=== PATIENT | female | born 1970 | race Caucasian/White ===

== ENCOUNTER → 2020-07-23 14:54 | Outpatient (BNVA) | payer MEDICAID, SELFPAY | PROVIDERS: PCP Registered Nurse; Visit Provider Registered Nurse | DX: E78.5 Hyperlipidemia, unspecified (principal); I10 Essential (primary) hypertension; E53.8 Deficiency of other specified B group vitamins; F10.10 Alcohol abuse, uncomplicated; F41.8 Other specified anxiety disorders; F17.210 Nicotine dependence, cigarettes, uncomplicated; R16.0 Hepatomegaly, not elsewhere classified; E66.09 Other obesity due to excess calories; Z68.31 Body mass index [BMI] 31.0-31.9, adult | CPT/HCPCS: 80053; 80061; 82607; 83721; 85025 ==

== ENCOUNTER 2020-10-21 03:34 | Emergency (ER) | payer MEDICAID, SELFPAY ==
[2020-10-21 03:36] VITALS: BP 133/115; PULSE 88; RESP 18; TEMP 36.4; O2SAT 97; BMI 29.0
--- NOTE | 2020-10-21 03:42 | ED_ITS ---
HPI - Headache General: Chief Complaint: Headache Stated Complaint: HIGH BLOOD PRESSURE Time Seen by Provider: 10/21/20 03:40 Source: patient and EMS Mode of arrival: EMS Limitations: no limitations History of Present Illness: HPI Narrative: 50-year-old female who states that she has a history of high blood pressure supposed to be on lisinopril. She states that she has not been able to get to the store in the last 2 weeks and has not had any of her blood pressure meds in over 2 weeks. She has had increasing hypertension along with dental pain. She states she has left lower molar pain. States that the pain started to radiate her head and now has a headache she rates a 6 out of 10. Denies this being the worst headache of her life. Denies any fevers. Denies any vomiting or diarrhea. Associated symptoms: Deny chest pain, fever(s), nausea, rash or vomiting Review of Systems Const: Denies: fever(s), chills, body aches or change in appetite Eyes: Denies: blurry vision or eye discomfort ENMT: Reports: mouth pain Card: Denies: chest pain Resp: Denies: dyspnea GI: Denies: abdominal pain, nausea, vomiting or diarrhea : Denies: dysuria Musc: Denies: neck pain or back pain Skin/Breast: Denies: rash Neuro: Reports: headache(s) Psych: Denies: depression Tej/Lymph: Denies: easy bruising All/Imm: Denies: urticaria PFSH ED PFSH: Medical History Alcohol abuse Allergic rhinitis Anxiety COPD (chronic obstructive pulmonary disease) with acute bronchitis Obesity Surgical History Hx of appendectomy Social History Smoking and tobacco status: current every day smoker cigarettes Packs smoked per day: 1 Quit status (tobacco): considering quitting Alcohol intake: current Alcohol intake frequency: other Alcohol type: beer and hard liquor Desire information about alcohol rehabilitation?: Yes Marital status: Legally Number of children: 4 Female Reproductive History: Date of last menstrual period: 07/22/20 Physical Exam Const: COMMON NORMALS: no acute distress, patient oriented x3 and healthy appearing HENMT: COMMON NORMALS: normocephalic and atraumatic HEAD & SCALP: normocephalic and atraumatic OTHER: Very poor dentition with tenderness over left lower molar with no obvious Eye: COMMON NORMALS: Equal, round and reactive pupils present and EOMs intact bilaterally PUPIL: Yes Equal, round and reactive pupils present Neck/C-Spine: COMMON NORMALS: full ROM and supple Chest: COMMONS NORMALS: normal inspection of the chest and normal palpation of entire chest wall Resp: COMMON NORMALS: normal respiratory effort, No retractions, No use of accessory muscles and clear to auscultation bilaterally AUSCULTATION: clear to auscultation bilaterally Cardio: COMMON NORMALS: regular rate, regular rhythm and No murmurs present (Cardio) RATE: regular rate RHYTHM: regular rhythm GI: COMMON NORMALS: Normal to inspection, nondistended, normoactive bowel sounds present, Soft to palpation, non-tender and no masses PALPATION: Yes Soft to palpation Extremity: COMMON NORMALS: normal to inspection and full ROM Neuro: COMMON NORMALS: patient oriented x3, moves all extremities and no focal motor deficits Psych: COMMON NORMALS: mental status grossly normal, Normal thought process present and cooperative THOUGHT PROCESS: Normal thought process present Skin: COMMON NORMALS: no rashes or lesions noted and no wounds GENERAL SKIN EXAM: no rashes or lesions noted Course Vital Signs: Vital signs: Vital Signs Temperature 97.6 F 10/21/20 03:36 Pulse Rate 88 10/21/20 03:36 Respiratory Rate 18 10/21/20 03:36 Blood Pressure 133/115 10/21/20 03:36 Pulse Oximetry 97 10/21/20 03:36 MDM - Headache MDM Narrative: Medical decision making narrative: Patient presents here with headache along with dental pain. She also has high blood pressure and has not filled her meds in weeks. She has no signs of meningitis or subarachnoid hemorrhage. Headache is not the worst headache of her life and likely is related to her dental pain. Will start on antibiotics for dental pain. Headache areas were improved after Reglan and Benadryl. Her blood pressure here has been stable. She is to follow-up with PCP and return if worsening. Discharge Plan Discharge Patient Disposition: Home Clinical Impression: Headache, Essential hypertension, Pain, dental Condition: Stable Prescriptions: New penicillin V potassium 500 mg tablet 500 mg PO Q6H 7 Days Qty: 28 RF: 0 No Action albuterol sulfate [ProAir HFA] 90 mcg/actuation HFA aerosol inhaler 2 inh inhalation Q4H PRN (Reason: shortness of breath or wheezing) Qty: 8.5 RF: 3 fluticasone propionate 50 mcg/actuation spray,suspension 1 spray intranasal BID Qty: 16 RF: 3 bupropion HCl 100 mg tablet See Rx Instructions .ROUTE .COMPLEX Qty: 60 RF: 0 lisinopril 10 mg tablet See Rx Instructions .ROUTE .COMPLEX Qty: 90 RF: 0 Discharge Orders: Discharge ED (Routine); Ordered 10/21/20 Ordered By: Mahendra De Leon Referrals: Storm Walton FNP [Primary Care Provider] - Discharge Diet: Advance as tolerated Discharge Activity: Resume usual activity Patient Instructions: Toothache (ED) Coding Level of Care Code ED Safety Trainer for Moncho Molina
[2020-10-21] MEDS: diphenhydrAMINE 50 mg/mL SDV 1mL IM (03:49)
[2020-10-21] MEDS: metoclopramide 5 mg/mL SDV 2 mL 10 MG IM (03:50)
[2020-10-21 03:54] VITALS: BP 154/111; PULSE 83; RESP 16; O2SAT 97
[2020-10-21] MEDS: acetaminophen 500 mg Tablet 1000 MG PO (03:59)
[2020-10-21 04:00] VITALS: BP 156/114; PULSE 83; RESP 16; TEMP 36.4; O2SAT 97
== END 2020-10-21 04:01 | disposition home or self-care (01) ==
LOC: ER 04:20
PROVIDERS: Emergency Provider Emergency Medicine; PCP Registered Nurse
DX: R51.9 Headache, unspecified (principal); I10 Essential (primary) hypertension; K08.89 Other specified disorders of teeth and supporting structures; J44.9 Chronic obstructive pulmonary disease, unspecified; E66.9 Obesity, unspecified; Z68.29 Body mass index [BMI] 29.0-29.9, adult; F17.210 Nicotine dependence, cigarettes, uncomplicated
CPT/HCPCS: 96372; 99283; J1200; J2765

== ENCOUNTER 2021-03-28 16:12 | Emergency (ER) | payer MEDICAID, SELFPAY ==
[2021-03-28 16:16] VITALS: BP 126/77; PULSE 112; RESP 16; TEMP 36.3; O2SAT 98
--- NOTE | 2021-03-28 16:41 | W.ED.GENADLT ---
Documented by User: Miguel Ángel Oates MD 03/28/21 17:29 HPI - General Adult General: Chief complaint: Psychiatric Symptoms Stated complaint: MHE Time Seen by Provider: 03/28/21 16:36 History of Present Illness: HPI: [50]yo patient w/ hx of depression BIBA for acute suicidal ideation with plan. Patient plans to kill herself by leaving her wood stove on while going to bed. Patient tells me her son was murdered recently and is feeling depressed from this. On arrival, the patient is AAOx3 and cooperative with my evaluation. No focal complaints of chest pain, shortness of breath, palpitations, N/V, focal GI/ complaints. Currently denies HI. No complaints of hallucinations. Onset: acute Duration: ongoing Location: home Severity: severe Associated symptoms: Deny chest pain, dyspnea, nausea, rash, palpitations or vomiting Review of Systems Const: Denies: fever(s) or chills Eyes: Denies: change in vision ENMT: Denies: mouth pain Card: Denies: chest pain or palpitations Resp: Denies: dyspnea or non-productive cough GI: Denies: abdominal pain, nausea, vomiting or diarrhea : Denies: dysuria Musc: Denies: extremity pain Skin/Breast: Denies: rash or new lesions Neuro: Denies: weakness in extremities Psych: Reports: depression and other (+suicidal ideation) Tej/Lymph: Denies: easy bruising PFS ED PFSH: Medical History Alcohol abuse Allergic rhinitis Anxiety COPD (chronic obstructive pulmonary disease) with acute bronchitis Obesity Surgical History Hx of appendectomy Social History Smoking and tobacco status: current every day smoker cigarettes Packs smoked per day: 1 Quit status (tobacco): considering quitting Alcohol intake: current Alcohol intake frequency: other Alcohol type: beer and hard liquor Desire information about alcohol rehabilitation?: Yes Marital status: Legally Number of children: 4 Female Reproductive History: Date of last menstrual period: 07/22/20 Physical Exam Const: COMMON NORMALS: alert HENMT: COMMON NORMALS: atraumatic HEAD & SCALP: atraumatic MOUTH: moist mucous membranes not abnormal Eye: COMMON NORMALS: EOMs intact bilaterally and conjunctivae normal CONJUNCTIVA: Yes conjunctivae normal Neck/C-Spine: COMMON NORMALS: full ROM and supple Resp: COMMON NORMALS: normal respiratory effort and clear to auscultation bilaterally AUSCULTATION: clear to auscultation bilaterally Cardio: COMMON NORMALS: regular rate RATE: regular rate GI: COMMON NORMALS: Soft to palpation and non-tender PALPATION: Yes Soft to palpation Extremity: COMMON NORMALS: full ROM Neuro: SENSORIUM/ORIENTATION: Yes alert MOTOR EXAM: No Abnormal motor strength present and Other motor observations present (no focal motor deficits) Psych: COMMON NORMALS: speech normal SPEECH: Yes normal speech MOOD & AFFECT: Yes euthymic mood Course Vital Signs: Vital signs: Vital Signs Temperature 98.1 F 03/28/21 22:00 Pulse Rate 79 03/28/21 22:00 Respiratory Rate 18 03/28/21 22:00 Blood Pressure 135/79 03/28/21 22:00 Pulse Oximetry 97 03/28/21 22:00 MDM - General Adult Medical Decision Making [50]yo patient w/ hx of depression presenting for SI with plan. HDS, exam within normal limit Thoughts are linear and organized, and the patient has no AH/VH, or HI. Clinically the patient displays no overt toxidrome; they are well appearing, with low suspicion for toxic ingestion given history and exam. Symptoms unlikely 2/2 anemia, hypothyroidism, infection, or ICH. Workup: CBC, CMP, Lipase, salicylate/tylenol, UDS Lab findings: wnl, +BENZO IN THE URINE [5:30pm] On reassessment, labs and workup wnl. Patient is hemodynamically stable with no acute medical complaints. Case discussed with psychiatric provider Dr. Chavez at [facility] psych inpatient with recommendation for admission. However, there is no beds in the hospital for psych patients. Patient will be transferred to outside facility. Disposition: Transfer to outside [facility] facility Lab Data : 03/28/21 16:59 03/28/21 16:59 Laboratory Results WBC 11.1 10^3/uL (4.0-10.0) H 03/28/21 16:59 RBC 4.89 10^6/uL (4.1-5.3) 03/28/21 16:59 Hgb 15.7 g/dL (11.5-15.3) H 03/28/21 16:59 Hct 49.1 % (37.0-47.0) H 03/28/21 16:59 MCV 100.4 fl (81-99) H 03/28/21 16:59 MCH 32.1 pg (28.0-34.0) 03/28/21 16:59 MCHC 32.0 g/dL (30.0-36.0) 03/28/21 16:59 RDW 12.9 % (12.1-15.1) 03/28/21 16:59 Plt Count 302 10^3/cmm (130-400) 03/28/21 16:59 MPV 9.5 fL (7.4-10.4) 03/28/21 16:59 Neut % (Auto) 58.2 % 03/28/21 16:59 Lymph % (Auto) 32.1 % 03/28/21 16:59 [place] % (Auto) 6.1 % 03/28/21 16:59 Eos % (Auto) 2.8 % 03/28/21 16:59 Baso % (Auto) 0.4 % 03/28/21 16:59 Neut # (Auto) 6.46 10^3/uL (1.8-7.7) 03/28/21 16:59 Lymph # (Auto) 3.6 10^3/uL (0.8-4.8) 03/28/21 16:59 [place] # (Auto) 0.7 10^3/uL (0.2-0.9) 03/28/21 16:59 Eos # (Auto) 0.3 10^3/uL (0.0-0.8) 03/28/21 16:59 Baso # (Auto) 0.0 10^3/uL (0.0-0.1) 03/28/21 16:59 Nucleated RBC % (auto) 0 % 03/28/21 16:59 Nucleated RBCs # 0.0 /100WBC 03/28/21 16:59 Sodium 137 mmol/L (136-145) 03/28/21 16:59 Potassium 4.4 mmol/L (3.5-5.1) 03/28/21 16:59 Chloride 101 mmol/L (98-107) 03/28/21 16:59 Carbon Dioxide 21 mmol/L (22-29) L 03/28/21 16:59 Anion Gap 19.4 (5-19) H 03/28/21 16:59 BUN 23 mg/dL (6-20) H 03/28/21 16:59 Creatinine 0.6 mg/dL (0.5-0.9) 03/28/21 16:59 GFR Calculation 106.3 mL/min (90-130) 03/28/21 16:59 Glucose 103 mg/dL (65-115) 03/28/21 16:59 Calculated Osmolality 288 mOsm/kg (285-295) 03/28/21 16:59 Calcium 8.3 mg/dL (8.5-10.5) L 03/28/21 16:59 Creatine Kinase 104 U/L (26-192) 03/28/21 16:59 TSH 1.18 uIU/mL (0.27-4.20) 03/28/21 16:59 Free T4 0.87 ng/dL (0.82-1.77) 03/28/21 16:59 HCG, Qual Negative (Negative) 03/28/21 16:59 Salicylates < 0.3 mg/dL (3-10) L 03/28/21 16:59 Urine Opiates Screen Negative ng/mL (Negative) 03/28/21 16:43 Acetaminophen < 5.0 ug/mL (10-30) L 03/28/21 16:59 Ur Barbiturates Screen Negative ng/mL (Negative) 03/28/21 16:43 Ur Phencyclidine Scrn Negative ng/mL (Negative) 03/28/21 16:43 Ur Amphetamines Screen Negative ng/mL (Negative) 03/28/21 16:43 U Benzodiazepines Scrn Positive ng/mL (Negative) H 03/28/21 16:43 Urine Cocaine Screen Negative ng/mL (Negative) 03/28/21 16:43 U Marijuana (THC) Screen Negative ng/mL (Negative) 03/28/21 16:43 Ethyl Alcohol 204 mg/dL (0-10) H 03/28/21 16:59 SARS-CoV-2 Ag (Rapid) Negative (Negative) 03/28/21 17:51 Discharge Plan Discharge Patient Disposition: Home Clinical Impression: Depression Condition: Stable Prescriptions: No Action albuterol sulfate [ProAir HFA] 90 mcg/actuation HFA aerosol inhaler 2 inh inhalation Q4H PRN (Reason: shortness of breath or wheezing) Qty: 8.5 3RF fluticasone propionate 50 mcg/actuation spray,suspension 1 spray intranasal BID Qty: 16 3RF Rx Instructions: administer into each nostril bupropion HCl 100 mg tablet See Rx Instructions .ROUTE .COMPLEX Qty: 60 0RF Dose Instruction: TAKE 1 TABLET BY MOUTH TWICE DAILY Rx Instructions: TAKE 1 TABLET BY MOUTH TWICE DAILY lisinopril 10 mg tablet See Rx Instructions .ROUTE .COMPLEX Qty: 90 0RF Dose Instruction: TAKE 1 TABLET BY MOUTH DAILY Rx Instructions: TAKE 1 TABLET BY MOUTH DAILY Discharge Orders: Discharge ED (Routine); Ordered 03/29/21 Ordered By: Stef Kirk Referrals: Storm Walton FNP [Primary Care Provider] - Discharge Diet: Advance as tolerated Discharge Activity: Increase activity as tolerated Patient Instructions: Depression (ED), Alcohol Intoxication (ED) Activity Restrictions/Additional Instructions: Return immediately to the emergency department for any wishes or thoughts to harm your self or others. Follow-up with behavioral health care. Coding Level of Care Code ED Sustainability Project Manager for Chg Fwd Exam Comprehensive Documented by User: Stef Kirk DO 03/29/21 00:18 HPI - General Adult General: Chief complaint: Psychiatric Symptoms Stated complaint: MHE Time Seen by Provider: 03/28/21 16:36 [facility] ED PFSH: Medical History Alcohol abuse Allergic rhinitis Anxiety COPD (chronic obstructive pulmonary disease) with acute bronchitis Obesity Surgical History Hx of appendectomy Social History Smoking and tobacco status: current every day smoker cigarettes Packs smoked per day: 1 Quit status (tobacco): considering quitting Alcohol intake: current Alcohol intake frequency: other Alcohol type: beer and hard liquor Desire information about alcohol rehabilitation?: Yes Marital status: Legally Number of children: 4 Course Vital Signs: Vital signs: Vital Signs Temperature 98.1 F 03/28/21 22:00 Pulse Rate 79 03/28/21 22:00 Respiratory Rate 18 03/28/21 22:00 Blood Pressure 135/79 03/28/21 22:00 Pulse Oximetry 97 03/28/21 22:00 MDM - General Adult Medical Decision Making [50]yo patient w/ hx of depression presenting for SI with plan. HDS, exam within normal limit Thoughts are linear and organized, and the patient has no AH/VH, or HI. Clinically the patient displays no overt toxidrome; they are well appearing, with low suspicion for toxic ingestion given history and exam. Symptoms unlikely 2/2 anemia, hypothyroidism, infection, or ICH. Workup: CBC, CMP, Lipase, salicylate/tylenol, UDS Lab findings: wnl, +BENZO IN THE URINE [5:30pm] On reassessment, labs and workup wnl. Patient is hemodynamically stable with no acute medical complaints. Case discussed with psychiatric provider Dr. Chavez at [facility] psych inpatient with recommendation for admission. However, there is no beds in the hospital for psych patients. Patient will be transferred to outside facility. Disposition: Transfer to outside [facility] facility [id number]: Received in checkout from previous physician. This lady was set up to be transferred to an outside facility for depression with suicidal ideation. She was intoxicated on arrival and alcohol level of 204. She is now sober. 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 She tells me that she is no longer suicidal, that she simply had an episode . She has been fully compliant and courteous here. I asked her if she would be willing to speak with our psychiatrist via telemedicine. She agrees. I spoke with Dr. Chavez, and he agrees to consult via telemedicine in her room to determine disposition. 0017: Psychiatry has had a chance to examine the patient. Psychiatry has released the patient to home for outpatient follow-up. She will be allowed discharge. Lab Data : 03/28/21 16:59 03/28/21 16:59 Laboratory Results WBC 11.1 10^3/uL (4.0-10.0) H 03/28/21 16:59 RBC 4.89 10^6/uL (4.1-5.3) 03/28/21 16:59 Hgb 15.7 g/dL (11.5-15.3) H 03/28/21 16:59 Hct 49.1 % (37.0-47.0) H 03/28/21 16:59 MCV 100.4 fl (81-99) H 03/28/21 16:59 MCH 32.1 pg (28.0-34.0) 03/28/21 16:59 MCHC 32.0 g/dL (30.0-36.0) 03/28/21 16:59 RDW 12.9 % (12.1-15.1) 03/28/21 16:59 Plt Count 302 10^3/cmm (130-400) 03/28/21 16:59 MPV 9.5 fL (7.4-10.4) 03/28/21 16:59 Neut % (Auto) 58.2 % 03/28/21 16:59 Lymph % (Auto) 32.1 % 03/28/21 16:59 [place] % (Auto) 6.1 % 03/28/21 16:59 Eos % (Auto) 2.8 % 03/28/21 16:59 Baso % (Auto) 0.4 % 03/28/21 16:59 Neut # (Auto) 6.46 10^3/uL (1.8-7.7) 03/28/21 16:59 Lymph # (Auto) 3.6 10^3/uL (0.8-4.8) 03/28/21 16:59 [place] # (Auto) 0.7 10^3/uL (0.2-0.9) 03/28/21 16:59 Eos # (Auto) 0.3 10^3/uL (0.0-0.8) 03/28/21 16:59 Baso # (Auto) 0.0 10^3/uL (0.0-0.1) 03/28/21 16:59 Nucleated RBC % (auto) 0 % 03/28/21 16:59 Nucleated RBCs # 0.0 /100WBC 03/28/21 16:59 Sodium 137 mmol/L (136-145) 03/28/21 16:59 Potassium 4.4 mmol/L (3.5-5.1) 03/28/21 16:59 Chloride 101 mmol/L (98-107) 03/28/21 16:59 Carbon Dioxide 21 mmol/L (22-29) L 03/28/21 16:59 Anion Gap 19.4 (5-19) H 03/28/21 16:59 BUN 23 mg/dL (6-20) H 03/28/21 16:59 Creatinine 0.6 mg/dL (0.5-0.9) 03/28/21 16:59 GFR Calculation 106.3 mL/min (90-130) 03/28/21 16:59 Glucose 103 mg/dL (65-115) 03/28/21 16:59 Calculated Osmolality 288 mOsm/kg (285-295) 03/28/21 16:59 Calcium 8.3 mg/dL (8.5-10.5) L 03/28/21 16:59 Creatine Kinase 104 U/L (26-192) 03/28/21 16:59 TSH 1.18 uIU/mL (0.27-4.20) 03/28/21 16:59 Free T4 0.87 ng/dL (0.82-1.77) 03/28/21 16:59 HCG, Qual Negative (Negative) 03/28/21 16:59 Salicylates < 0.3 mg/dL (3-10) L 03/28/21 16:59 Urine Opiates Screen Negative ng/mL (Negative) 03/28/21 16:43 Acetaminophen < 5.0 ug/mL (10-30) L 03/28/21 16:59 Ur Barbiturates Screen Negative ng/mL (Negative) 03/28/21 16:43 Ur Phencyclidine Scrn Negative ng/mL (Negative) 03/28/21 16:43 Ur Amphetamines Screen Negative ng/mL (Negative) 03/28/21 16:43 U Benzodiazepines Scrn Positive ng/mL (Negative) H 03/28/21 16:43 Urine Cocaine Screen Negative ng/mL (Negative) 03/28/21 16:43 U Marijuana (THC) Screen Negative ng/mL (Negative) 03/28/21 16:43 Ethyl Alcohol 204 mg/dL (0-10) H 03/28/21 16:59 SARS-CoV-2 Ag (Rapid) Negative (Negative) 03/28/21 17:51 Discharge Plan Discharge Patient Disposition: Home Clinical Impression: Depression Condition: Stable Prescriptions: No Action albuterol sulfate [ProAir HFA] 90 mcg/actuation HFA aerosol inhaler 2 inh inhalation Q4H PRN (Reason: shortness of breath or wheezing) Qty: 8.5 3RF fluticasone propionate 50 mcg/actuation spray,suspension 1 spray intranasal BID Qty: 16 3RF Rx Instructions: administer into each nostril bupropion HCl 100 mg tablet See Rx Instructions .ROUTE .COMPLEX Qty: 60 0RF Dose Instruction: TAKE 1 TABLET BY MOUTH TWICE DAILY Rx Instructions: TAKE 1 TABLET BY MOUTH TWICE DAILY lisinopril 10 mg tablet See Rx Instructions .ROUTE .COMPLEX Qty: 90 0RF Dose Instruction: TAKE 1 TABLET BY MOUTH DAILY Rx Instructions: TAKE 1 TABLET BY MOUTH DAILY Discharge Orders: Discharge ED (Routine); Ordered 03/29/21 Ordered By: Stef Kirk Referrals: Storm Walton FNP [Primary Care Provider] - Discharge Diet: Advance as tolerated Discharge Activity: Increase activity as tolerated Patient Instructions: Depression (ED), Alcohol Intoxication (ED) Activity Restrictions/Additional Instructions: Return immediately to the emergency department for any wishes or thoughts to harm your self or others. Follow-up with behavioral health care. Coding Level of Care Code ED Sustainability Project Manager for Moncho Fwphyllis Exam Comprehensive
[2021-03-28 17:01] LABS: Amphetamines Screen Urine Negative (Negative); Barbiturates Screen Urine Negative (Negative); Benzodiazepines Screen Urine Positive (Negative); Cocaine Screen Urine Negative (Negative); Opiate Screen Urine Negative (Negative); PCP Screen Urine Negative (Negative); THC Screen Urine Negative (Negative)
[2021-03-28 17:04] LABS: Basophils % 0.4 %; Eosinophils # 0.3 10^3/uL (0.0-0.8); Eosinophils % 2.8 %; Hematocrit 49.1 % (37.0-47.0); Hemoglobin 15.7 g/dL (11.5-15.3); Lymphocytes # 3.6 10^3/uL (0.8-4.8); Lymphocytes % 32.1 %; Mean Corpuscular Hemoglobin 32.1 pg (28.0-34.0); Mean Corpuscular Volume 100.4 fl (81-99); Mean Platelet Volume 9.5 fL (7.4-10.4); Monocytes # 0.7 10^3/uL (0.2-0.9); Monocytes % 6.1 %; Neutrophils # 6.46 10^3/uL (1.8-7.7); Neutrophils % 58.2 %; Nucleated Red Blood Cells % 0 %; Platelet Count 302 10^3/cmm (130-400); Red Blood Count 4.89 10^6/uL (4.1-5.3); Red Cell Distribution Width 12.9 % (12.1-15.1); White Blood Count 11.1 10^3/uL (4.0-10.0)
--- NOTE | 2021-03-28 17:08 | ECG_ITS ---
[facility] Test Date: 2021-03-28 Pat Name: Xiomara Chavez Department: Room: Gender: Female Cow Buyer: : 1970 Requested By: Miguel Ángel Oates Order Number: [id number] Brigitte MD: KUMAR REYES Measurements Intervals [place] Rate: 89 P: 75 MI: 186 QRS: 60 QRSD: 82 T: 51 QT: 352 QTc: 428 Interpretive Statements SINUS RHYTHM POSSIBLE LEFT ATRIAL ENLARGEMENT [-0.1mV P-WAVE IN V1/V2] LOW QRS VOLTAGE IN PRECORDIAL LEADS [QRS DEFLECTION < 1.0 mV IN CHEST LEADS] Compared to ECG 04/12/2017 10:43:46 Low QRS voltage now present Electronically Signed On 03-29-2021 19:17:18 COLOR DEVELOPER by KUMAR REYES [email or web address]
[2021-03-28 17:25] LABS: Blood Urea Nitrogen 23 mg/dL (6-20); Calcium 8.3 mg/dL (8.5-10.5); Carbon Dioxide 21 mmol/L (22-29); Chloride 101 mmol/L (98-107); Glomerular Filtration Rate 106.3 mL/min (90-130); Glucose 103 mg/dL (65-115); Osmolality Calculated 288 mOsm/kg (285-295); Sodium 137 mmol/L (136-145)
[2021-03-28 17:28] LABS: Acetaminophen < 5.0 ug/mL (10-30); Salicylate < 0.3 mg/dL (3-10)
[2021-03-28 17:29] LABS: Anion Gap 19.4 (5-19); Potassium 4.4 mmol/L (3.5-5.1)
[2021-03-28 18:00] LABS: Free T4 Free Thyroxine 0.87 ng/dL (0.82-1.77); Thyroid Stimulating Hormone 1.18 uIU/mL (0.27-4.20)
[2021-03-28 18:25] LABS: SARS Covid-2 Antigen Negative (Negative)
[2021-03-28 19:07] VITALS: BP 145/79; PULSE 89; RESP 20; TEMP 36.7; O2SAT 97
--- NOTE | 2021-03-28 19:20 | PC.NURSE ---
bedside reports in place. continual observation in place. resting on stretcher with respirations even equal and unlabored.
[2021-03-28] MEDS: nicotine 21 mg Patch 1 PATCH TRANSDERMA (19:28)
[2021-03-28 20:00] VITALS: BP 157/80; PULSE 79; RESP 18; TEMP 36.9; O2SAT 98
[2021-03-28 22:00] VITALS: BP 135/79; PULSE 79; RESP 18; TEMP 36.7; O2SAT 97
[2021-03-28 22:32] LABS: Alcohol Level 204 mg/dL (0-10)
[2021-03-28 22:55] LABS: HCG, Serum Qual Negative (Negative)
[2021-03-28 23:01] LABS: Creatine Phosphokinase 104 U/L (26-192)
[2021-03-28] MEDS: acetaminophen 500 mg Tablet 1000 MG PO (23:03)
[2021-03-28] MEDS: LORazepam 0.5 mg Tablet PO (23:03)
== END 2021-03-29 00:38 | disposition home or self-care (01) ==
PROVIDERS: Emergency Medicine; Emergency Provider Emergency Medicine; PCP Registered Nurse
DX: F32.A Depression, unspecified (principal); J44.9 Chronic obstructive pulmonary disease, unspecified; F17.210 Nicotine dependence, cigarettes, uncomplicated; Z20.822 Contact with and (suspected) exposure to COVID-19
CPT/HCPCS: 36415; 80048; 80306; 80307; 82550; 84439; 84443; 84703; 85025; 87426; 93005; 99284

== ENCOUNTER → 2021-05-22 13:27 | Outpatient (BNVA) | payer MEDICAID, SELFPAY | PROVIDERS: PCP Registered Nurse; Visit Provider Nurse Practitioner Psychiatric/Mental Health | DX: F33.2 Major depressive disorder, recurrent severe without psychotic features (principal); F43.10 Post-traumatic stress disorder, unspecified; F17.210 Nicotine dependence, cigarettes, uncomplicated | CPT/HCPCS: 90792 ==

== ENCOUNTER 2021-06-01 11:23 | Inpatient (IN) | payer MEDICAID, SELFPAY ==
[2021-06-01 11:26] VITALS: BP 127/85; PULSE 95; RESP 18; TEMP 36.6; O2SAT 96; BMI 30.7
--- NOTE | 2021-06-01 11:28 | ECG_ITS ---
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 Measurements Intervals [place] Rate: 90 P: 78 SD: 190 QRS: 81 QRSD: 80 T: 58 QT: 361 QTc: 444 Interpretive Statements SINUS RHYTHM POSSIBLE LEFT ATRIAL ENLARGEMENT [-0.1mV P-WAVE IN V1/V2] SEPTAL MYOCARDIAL INFARCTION , OF INDETERMINATE AGE [40+ ms Q WAVE IN V1/V2] Compared to ECG 03/28/2021 18:17:57 Myocardial infarct finding now present Electronically Signed On 06-02-2021 9:17:04 CDT by Jake Fagan M.D. [id number]
--- NOTE | 2021-06-01 11:29 | W.ED.GENADLT ---
HPI - General Adult General: Chief complaint: Psychiatric Symptoms Stated complaint: ANXIETY/ SI/ TOOK GABAPENTIN Time Seen by Provider: 06/01/21 11:27 History of Present Illness: HPI: [50]yo patient w/ hx of chornic depression, COPD, and alcohol abuse BIBA for acute anxiety and attempt for suicide after ingesting 10-15 tablets of 300mg of gabapentin at 8:30am. On arrival, the patient is AAOx3 and cooperative with my evaluation. No focal complaints of chest pain, shortness of breath, palpitations, N/V, focal GI/ complaints. []Currently denies SI/HI. No complaints of hallucinations. Last alcohol use was 3 days ago. Onset: acute Duration: ongoing Location: home Severity: severe Associated symptoms: Deny chest pain, dyspnea, nausea, rash, palpitations or vomiting Review of Systems Const: Denies: fever(s) or chills Eyes: Denies: change in vision ENMT: Denies: mouth pain Card: Denies: chest pain or palpitations Resp: Denies: dyspnea or non-productive cough GI: Denies: abdominal pain, nausea, vomiting or diarrhea : Denies: dysuria Musc: Denies: extremity pain Skin/Breast: Denies: rash or new lesions Neuro: Denies: weakness in extremities Psych: Reports: depression and suicidal ideation Tej/Lymph: Denies: easy bruising PFS ED PFSH: Medical History Alcohol abuse Allergic rhinitis Anxiety Bereavement COPD (chronic obstructive pulmonary disease) with acute bronchitis Major depressive disorder, 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, episodic Nicotine dependence, cigarettes, uncomplicated Obesity Psychiatric care PTSD (post-traumatic stress disorder) Severe alcohol dependence Surgical History Hx of appendectomy Social History Smoking and tobacco status: current every day smoker cigarettes Packs smoked per day: 1 Quit status (tobacco): considering quitting Alcohol intake: current Alcohol intake frequency: other Alcohol type: beer and hard liquor Desire information about alcohol rehabilitation?: Yes Marital status: Legally Number of children: 4 Female Reproductive History: Date of last menstrual period: 07/22/20 Physical Exam Const: COMMON NORMALS: alert HENMT: COMMON NORMALS: atraumatic HEAD & SCALP: atraumatic MOUTH: moist mucous membranes not abnormal Eye: COMMON NORMALS: EOMs intact bilaterally and conjunctivae normal CONJUNCTIVA: Yes conjunctivae normal Neck/C-Spine: COMMON NORMALS: full ROM and supple Resp: COMMON NORMALS: normal respiratory effort and clear to auscultation bilaterally AUSCULTATION: clear to auscultation bilaterally Cardio: COMMON NORMALS: regular rate RATE: regular rate GI: COMMON NORMALS: Soft to palpation and non-tender PALPATION: Yes Soft to palpation Extremity: COMMON NORMALS: full ROM Neuro: SENSORIUM/ORIENTATION: Yes alert MOTOR EXAM: No Abnormal motor strength present and Other motor observations present (no focal motor deficits) Psych: COMMON NORMALS: speech normal SPEECH: Yes normal speech MOOD & AFFECT: Yes depressed mood Course Vital Signs: Vital signs: Vital Signs Temperature 97.9 F 06/01/21 11:26 Pulse Rate 95 06/01/21 11:26 Respiratory Rate 18 06/01/21 11:26 Blood Pressure 127/85 06/01/21 11:26 Pulse Oximetry 96 06/01/21 11:26 MDM - General Adult Medical Decision Making [50]yo patient w/ hx of depression, COPD presenting for anxiety, acute suicidal attempt with 10-15 tablets of gabapentin 300mg. HDS, exam within normal limit Thoughts are linear and organized, and the patient has no AH/VH, or HI. Clinically the patient displays no overt toxidrome; they are well appearing, with low suspicion for toxic ingestion given history and exam. Symptoms unlikely 2/2 anemia, hypothyroidism, infection, or ICH. Workup: CBC, CMP, Lipase, salicylate/tylenol, serum ethanol, UDS Lab findings: wnl, +amphetamine Case was discussed with [place] poison control chemist who informs me that patient is currently subtoxic since total ingestion < 10g and patient is past peak of 2hr. [1:00pm] On reassessment, labs and workup wnl. Patient is hemodynamically stable with no acute medical complaints. Case discussed with psychiatric provider Dr. Chavez at [facility] psych inpatient with recommendation for admission Disposition: Psych Lab Data : 06/01/21 11:47 06/01/21 11:47 Laboratory Results WBC 5.7 10^3/uL (4.0-10.0) 06/01/21 11:47 RBC 4.11 10^6/uL (4.1-5.3) 06/01/21 11:47 Hgb 13.1 g/dL (11.5-15.3) 06/01/21 11:47 Hct 39.3 % (37.0-47.0) 06/01/21 11:47 MCV 95.6 fl (81-99) 06/01/21 11:47 MCH 31.9 pg (28.0-34.0) 06/01/21 11:47 MCHC 33.3 g/dL (30.0-36.0) 06/01/21 11:47 RDW 12.9 % (12.1-15.1) 06/01/21 11:47 Plt Count 262 10^3/cmm (130-400) 06/01/21 11:47 MPV 9.0 fL (7.4-10.4) 06/01/21 11:47 Neut % (Auto) 65.8 % 06/01/21 11:47 Lymph % (Auto) 22.4 % 06/01/21 11:47 [place] % (Auto) 9.1 % 06/01/21 11:47 Eos % (Auto) 2.1 % 06/01/21 11:47 Baso % (Auto) 0.3 % 06/01/21 11:47 Neut # (Auto) 3.76 10^3/uL (1.8-7.7) 06/01/21 11:47 Lymph # (Auto) 1.3 10^3/uL (0.8-4.8) 06/01/21 11:47 [place] # (Auto) 0.5 10^3/uL (0.2-0.9) 06/01/21 11:47 Eos # (Auto) 0.1 10^3/uL (0.0-0.8) 06/01/21 11:47 Baso # (Auto) 0.0 10^3/uL (0.0-0.1) 06/01/21 11:47 Nucleated RBC % (auto) 0 % 06/01/21 11:47 Nucleated RBCs # 0.0 /100WBC 06/01/21 11:47 Sodium 132 mmol/L (136-145) L 06/01/21 11:47 Potassium 3.7 mmol/L (3.5-5.1) 06/01/21 11:47 Chloride 97 mmol/L (98-107) L 06/01/21 11:47 Carbon Dioxide 25 mmol/L (22-29) 06/01/21 11:47 Anion Gap 13.7 (5-19) 06/01/21 11:47 BUN 22 mg/dL (6-20) H 06/01/21 11:47 Creatinine 0.7 mg/dL (0.5-0.9) 06/01/21 11:47 GFR Calculation 88.9 mL/min (90-130) L 06/01/21 11:47 Glucose 121 mg/dL (65-115) H 06/01/21 11:47 Calculated Osmolality 279 mOsm/kg (285-295) L 06/01/21 11:47 Calcium 8.8 mg/dL (8.5-10.5) 06/01/21 11:47 Total Bilirubin 0.6 mg/dL (0.15-1.2) 06/01/21 11:47 AST 23 U/L (0-32) 06/01/21 11:47 ALT 18 U/L (0-33) 06/01/21 11:47 Alkaline Phosphatase 80 IU/L (35-105) 06/01/21 11:47 Total Protein 7.0 g/dL (6.6-8.7) 06/01/21 11:47 Albumin 4.0 g/dL (3.5-5.2) 06/01/21 11:47 Globulin 3.0 g/dL (1.3-4.6) 06/01/21 11:47 Lipase 21 U/L (13-60) 06/01/21 11:47 Salicylates < 0.3 mg/dL (3-10) L 06/01/21 11:47 Urine Opiates Screen Negative ng/mL (Negative) 06/01/21 11:47 Acetaminophen < 5.0 ug/mL (10-30) L 06/01/21 11:47 Ur Barbiturates Screen Negative ng/mL (Negative) 06/01/21 11:47 Ur Phencyclidine Scrn Negative ng/mL (Negative) 06/01/21 11:47 Ur Amphetamines Screen Positive ng/mL (Negative) H 06/01/21 11:47 U Benzodiazepines Scrn Negative ng/mL (Negative) 06/01/21 11:47 Urine Cocaine Screen Negative ng/mL (Negative) 06/01/21 11:47 U Marijuana (THC) Screen Negative ng/mL (Negative) 06/01/21 11:47 Ethyl Alcohol < 10 mg/dL (0-10) 06/01/21 11:47 Discharge Plan Discharge Patient Disposition: Admitted As Inpatient Admit Provider: Deric Chavez Clinical Impression: Depression with suicidal ideation, Anxiety, Stress Condition: Stable Coding Level of Care Code ED Photoengraving Retoucher for Moncho Fwd Exam Comprehensive
[2021-06-01] MEDS: LORazepam 1 mg Tablet PO (11:51)
[2021-06-01 12:18] LABS: Basophils % 0.3 %; Eosinophils # 0.1 10^3/uL (0.0-0.8); Eosinophils % 2.1 %; Hematocrit 39.3 % (37.0-47.0); Hemoglobin 13.1 g/dL (11.5-15.3); Lymphocytes # 1.3 10^3/uL (0.8-4.8); Lymphocytes % 22.4 %; Mean Corpuscular HGB Conc 33.3 g/dL (30.0-36.0); Mean Corpuscular Hemoglobin 31.9 pg (28.0-34.0); Mean Corpuscular Volume 95.6 fl (81-99); Monocytes # 0.5 10^3/uL (0.2-0.9); Monocytes % 9.1 %; Neutrophils # 3.76 10^3/uL (1.8-7.7); Neutrophils % 65.8 %; Nucleated Red Blood Cells % 0 %; Platelet Count 262 10^3/cmm (130-400); Red Blood Count 4.11 10^6/uL (4.1-5.3); Red Cell Distribution Width 12.9 % (12.1-15.1); White Blood Count 5.7 10^3/uL (4.0-10.0)
[2021-06-01 12:44] LABS: Alanine Aminotransferase 18 U/L (0-33); Alkaline Phosphatase 80 IU/L (35-105); Anion Gap 13.7 (5-19); Aspartate Amino Transferase 23 U/L (0-32); Blood Urea Nitrogen 22 mg/dL (6-20); Calcium 8.8 mg/dL (8.5-10.5); Carbon Dioxide 25 mmol/L (22-29); Chloride 97 mmol/L (98-107); Creatinine Clr Calc Pharmacy 107.5122; Glomerular Filtration Rate 88.9 mL/min (90-130); Glucose 121 mg/dL (65-115); Lipase 21 U/L (13-60); Osmolality Calculated 279 mOsm/kg (285-295); Potassium 3.7 mmol/L (3.5-5.1); Sodium 132 mmol/L (136-145); Total Bilirubin 0.6 mg/dL (0.15-1.2)
[2021-06-01 12:51] LABS: Acetaminophen < 5.0 ug/mL (10-30); Alcohol Level < 10 mg/dL (0-10); Salicylate < 0.3 mg/dL (3-10)
[2021-06-01 12:59] LABS: Amphetamines Screen Urine Positive (Negative); Barbiturates Screen Urine Negative (Negative); Benzodiazepines Screen Urine Negative (Negative); Cocaine Screen Urine Negative (Negative); Opiate Screen Urine Negative (Negative); PCP Screen Urine Negative (Negative); THC Screen Urine Negative (Negative)
[2021-06-01 13:18] VITALS: BP 144/90; PULSE 78; RESP 18; O2SAT 97
[2021-06-01 13:46] LABS: HCG, Serum Qual Negative (Negative)
[2021-06-01] MEDS: propranolol 20 mg Tablet PO (14:09)
[2021-06-01 14:33] VITALS: BP 106/105; PULSE 79; RESP 18; TEMP 36.4; O2SAT 98
[2021-06-01] MEDS: nicotine 2 mg Gum BUCCAL ×2 (14:45→19:45)
[2021-06-01] MEDS: fluticasone nasal spray 16gm Btl 1 SPRAY INTRANASAL (17:33)
[2021-06-01] MEDS: acetaminophen 325 mg Tablet 650 MG PO (17:55)
[2021-06-01] MEDS: trazodone 50 mg Tablet PO (19:45)
[2021-06-01 20:42] VITALS: BP 122/76; PULSE 84; RESP 17; TEMP 36.7; O2SAT 97
[2021-06-02 06:00] VITALS: BP 107/72; PULSE 84; RESP 20; TEMP 36.5; O2SAT 97
[2021-06-02] MEDS: sertraline 50 mg Tablet PO (06:33)
[2021-06-02] MEDS: nicotine 2 mg Gum BUCCAL (07:28)
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
[2021-06-02] MEDS: nicotine 21 mg Patch 1 PATCH TRANSDERMA (09:44)
[2021-06-02] MEDS: fluticasone nasal spray 16gm Btl 1 SPRAY INTRANASAL ×2 (09:44→17:44)
[2021-06-02] MEDS: lisinopril 10 mg Tablet PO (09:45)
[2021-06-02] MEDS: folic acid 1 mg Tablet PO (09:45)
--- NOTE | 2021-06-02 12:52 | PC.SOCIAL ---
Patient did not attend group.
[2021-06-02] MEDS: polyethylene glycol 3350 Pkt 17 gm PO (13:57)
[2021-06-02 14:00] VITALS: BP 114/78; PULSE 80; RESP 18; TEMP 37.2; O2SAT 96
[2021-06-02] MEDS: acetaminophen 325 mg Tablet 650 MG PO (17:42)
[2021-06-02] MEDS: hyDROXYzine 25 mg Capsule 50 MG PO (18:28)
[2021-06-02 20:25] VITALS: BP 123/83; PULSE 74; RESP 18; TEMP 36.9; O2SAT 97
[2021-06-02] MEDS: trazodone 50 mg Tablet PO (22:19)
[2021-06-03 06:00] VITALS: BP 123/87; PULSE 84; RESP 19; TEMP 36.7; O2SAT 100
[2021-06-03] MEDS: sertraline 50 mg Tablet PO (06:16)
[2021-06-03] MEDS: fluticasone nasal spray 16gm Btl 1 SPRAY INTRANASAL ×2 (09:04→17:36)
[2021-06-03] MEDS: lisinopril 10 mg Tablet PO (09:04)
[2021-06-03] MEDS: folic acid 1 mg Tablet PO (09:04)
[2021-06-03] MEDS: phenyleph-mineral oil-petrolat Oint 28 gm 1 APPLIC TOPICAL (09:53)
[2021-06-03] MEDS: nicotine 21 mg Patch 1 PATCH TRANSDERMA (09:53)
[2021-06-03] MEDS: hyDROXYzine 25 mg Capsule 50 MG PO ×2 (10:00→15:49)
[2021-06-03 11:09] VITALS: PULSE 74; RESP 18; O2SAT 96
[2021-06-03] MEDS: albuterol 8 gm MDI 1 PUFF INHALATION (11:09)
--- NOTE | 2021-06-03 13:41 | PC.SOCIAL ---
Patient did not attend group.
[2021-06-03 13:55] VITALS: BP 135/90; PULSE 76; RESP 16; TEMP 36.7; O2SAT 97
--- NOTE | 2021-06-03 14:04 | W.PM.NPUPNS ---
Subjective NPU Subjective: Patient presents today reporting that she is doing better. She continues to adjust the story exactly what happened in a way that makes it so most of it seems like it is untrustworthy information. However that being said she is now on a 96-hour hold as she has been adherent to the medication is appropriate in all interviews. She expresses concern about her pets and reports that she needs to be able to go to the bank and pay for her phone so she can be less anxious about her situation of house arrest. She denied any lethality and reports that she plans to follow-up and avoid inappropriate behavior with Neurontin. Mental Status Exam MSE Comments: This is an overweight versus obese white female in hospital scrubs with adequate grooming and eye contact. No abnormal movements except for mild psychomotor retardation. Cooperative with exam in mild distress. Speech was normal rate and volume. Mood described as pretty good, affect congruent. Thought process organized. Thought contact: patient denies suicidal or homicidal ideation, there were no delusions reported or noted, patient denied auditory or visual hallucinations. Attention and concentration appeared intact and memory appeared reliable but none were formally tested. Patient is alert and oriented times three. Insight and judgment appear fair and impulse control appears limited. Vitals/I&O/Wt Last Vital Signs Temp 98.0 F 06/03/21 13:55 Pulse 76 06/03/21 13:55 Resp 16 06/03/21 13:55 BP 135/90 06/03/21 13:55 Pulse Ox 97 06/03/21 13:55 Data NPU : 06/01/21 11:47 06/01/21 11:47 A&P Assessment and plan (1) Depression with suicidal ideation: Status: Acute (2) Anxiety: Status: Acute (3) Stress: Status: Acute (4) Major depressive disorder, recurrent severe without psychotic features: Status: Chronic (5) Bereavement: Status: Acute (6) Nicotine dependence, cigarettes, uncomplicated: Status: Chronic (7) Methamphetamine dependence, episodic: Status: Chronic (8) PTSD (post-traumatic stress disorder): Status: Chronic (9) Severe alcohol dependence: Status: Chronic Plan This is a 50-year-old white female with a long history of depression, anxiety and addiction who presents after an intentional overdose that she denies being in a suicide attempt desiring discharge as soon as possible. 1.? Continue current medication.? Except, hold the Neurontin. 2.? Continue every 15 minute checks for safety. 3.? Encourage individual, group and milieu therapies. 4.? Encourage sober living treatment after discharge at the highest level of care to which she is willing to commit. 5. Likely discharge in the morning. Involuntary Hold Information 96 Hour Hold: 96 Hour Involuntary Admission: No Attestations NPU Medical Necessity Statement*: Inpatient hospitalization is medically necessary and the clinically appropriate intervention at this time. We will monitor medication to make changes as indicated. Likely length of stay 1-3 days. Coding Level of Care Code Acute Liability Claims Adjuster for g Fwd Diagnoses Depression with suicidal ideation F32.A; R45.851 Anxiety F41.9 Stress F43.9 Major depressive disorder, recurrent severe without psychotic features F33.2 Bereavement Z63.4 Nicotine dependence, cigarettes, uncomplicated F17.210 Methamphetamine dependence, episodic F15.20 PTSD (post-traumatic stress disorder) F43.10 Severe alcohol dependence F10.20
[2021-06-03 20:54] VITALS: BP 129/87; PULSE 88; RESP 18; TEMP 36.6; O2SAT 96
[2021-06-03] MEDS: acetaminophen 325 mg Tablet 650 MG PO (20:58)
[2021-06-03] MEDS: trazodone 50 mg Tablet PO (20:58)
--- NOTE | 2021-06-03 21:58 | PC.NURSE ---
2054 requested trazodone for sleep and tylenol for pain. 2154- They were effective.
[2021-06-04 06:00] VITALS: BP 134/93; PULSE 73; RESP 17; TEMP 36.6; O2SAT 96
[2021-06-04] MEDS: sertraline 50 mg Tablet PO (06:51)
[2021-06-04] MEDS: folic acid 1 mg Tablet PO (08:39)
[2021-06-04] MEDS: hyDROXYzine 25 mg Capsule 50 MG PO (08:39)
[2021-06-04] MEDS: lisinopril 10 mg Tablet PO (08:39)
[2021-06-04] MEDS: fluticasone nasal spray 16gm Btl 1 SPRAY INTRANASAL (08:43)
[2021-06-04] MEDS: phenyleph-mineral oil-petrolat Oint 28 gm 1 APPLIC TOPICAL (08:43)
[2021-06-04 09:08] VITALS: PULSE 79; RESP 17; O2SAT 98
[2021-06-04] MEDS: nicotine 4 mg lozenge MUCOUS MEM (09:49)
[2021-06-04 11:20] VITALS: BP 134/93; PULSE 79; RESP 17; O2SAT 98
--- NOTE | 2021-06-04 12:22 | PC.NURSE ---
Discharge Discharged to home via taxi services. Signed property sheet stating she is leaving with everything she came with. All discharge teaching completed and overviewed all appointments. Verbalizes understanding. Discharged at 1220 wit all belongings and discharge teaching education.
--- NOTE | 2021-06-08 06:41 | W.PM.NPUDCS ---
Diagnoses at Discharge Discharge Diagnosis (1) Depression with suicidal ideation: Status: Acute (2) Anxiety: Status: Acute (3) Stress: Status: Acute (4) Major depressive disorder, recurrent severe without psychotic features: Status: Chronic (5) Bereavement: Status: Acute (6) Nicotine dependence, cigarettes, uncomplicated: Status: Chronic (7) Methamphetamine dependence, episodic: Status: Chronic (8) PTSD (post-traumatic stress disorder): Status: Chronic (9) Severe alcohol dependence: Status: Chronic Reason for Visit Reason for Visit: ANXIETY/ SI/ TOOK GABAPENTIN Brief History: History of Present Illness Xiomara Chavez is a 50 year old female who presented to the emergency department with the following report: Chief complaint: Psychiatric Symptoms Stated complaint: ANXIETY/ SI/ TOOK GABAPENTIN Time Seen by Provider: 06/01/21 11:27 History of Present Illness:?? HPI: [50]yo patient w/ hx of chornic depression, COPD, and alcohol abuse BIBA for acute anxiety and attempt for suicide after ingesting 10-15 tablets of 300mg of gabapentin at 8:30am. On arrival, the patient is AAOx3 and cooperative with my evaluation. No focal complaints of chest pain, shortness of breath, palpitations, N/V, focal GI/ complaints. []Currently denies SI/HI. No complaints of hallucinations. Last alcohol use was 3 days ago. Onset: acute Duration: ongoing Location: home Severity: severe Associated symptoms: Deny chest pain, dyspnea, nausea, rash, palpitations or vomiting is gone okay. She was admitted to the neuropsychiatric unit for definitive treatment of those issues.? She presents today backtracking on her story of suicidal behavior reporting instead that she was anxious and just having to take that number of pills over a short period of time.? We discussed the fact that even if it was not a suicide attempt that is overdosing on medication using that much medication in a short time because she was anxious. ? She spent most of the time reporting that she was in the person and suicidal and that she had things to live for and that she is on house arrest and was really anxious because her phone service was set up and she was out of touch with her p.o. and to get a message from the ankle bracelet that she needed to be in touch with her p.o.? We reviewed her psychiatric evaluation from just days prior and she reports that there have been no substantive changes and that it reflects a true evaluation of her circumstance.? An excerpt of that is included below for context.? She is currently not on a 96-hour hold. Hospital Course Hospital Course She slowly acclimated to the individual, group and milieu therapies provided. She was continued on her outpatient medications. She tolerated these doses and showed steady improvement during her stay. She was able to contract for safety outside hospital prior to discharge. During the hospitalization, patient had routine laboratory studies which were within normal limits except for few outliers. Additionally there was a general medical evaluation which was also within normal limits and revealed no new acute processes. Discharge Summary: At the time of discharge, lethality was denied and psychosis was resolving. Mood and anxiety were well managed. Patient endorsed a plan to follow-up with the aftercare recommendations of the treatment team. Patient was evaluated and deemed to be absent credible lethality, and had achieved the maximum benefit from an inpatient hospitalization, so was discharged. Involuntary Hold Information 96 Hour Hold: 96 Hour Involuntary Admission: No Mental Status Exam MSE Comments: This is an overweight versus obese white female in hospital scrubs with adequate grooming and eye contact. No abnormal movements except for mild psychomotor retardation. Cooperative with exam in mild distress. Speech was normal rate and volume. Mood described as pretty good, affect congruent. Thought process organized. Thought contact: patient denies suicidal or homicidal ideation, there were no delusions reported or noted, patient denied auditory or visual hallucinations. Attention and concentration appeared intact and memory appeared reliable but none were formally tested. Patient is alert and oriented times three. Insight and judgment appear fair and impulse control appears limited. Cognition: Patient Appearance: Disheveled/Poor Hygiene Level of Consciousness: Awake, Alert, Appropriate and Follows Commands Patient Cognition Impaired: No Ability to Follow Directions: Good Patient Orientation (long list): Person, Place, Time, Name, Month and Year Comprehension Ability: No Impairment Hallucination Type: None Delusion Description: Not Present Thought Process: Appropriate Affect: Affect Description: Anxious Depressive Symptoms: Difficulty Concentrating, Difficulty Sleeping, Feelings of Worthlessness, Hopelessness, Insomnia, Increased Anxiety, Loss of Energy, Low Self Esteem and Unhappiness Behavior: Patient Behavior: Cooperative Speech Pattern: Appropriate and Clear Discharge Data Studies Completed and Pending: Laboratory Results WBC 5.7 10^3/uL (4.0- 10.0) 06/01/21 11:47 RBC 4.11 10^6/uL (4.1 -5.3) 06/01/21 11:47 Hgb 13.1 g/dL (11.5-1 5.3) 06/01/21 11:47 Hct 39.3 % (37.0-47.0 ) 06/01/21 11:47 MCV 95.6 fl (81-99) 06/01/21 11:47 MCH 31.9 pg (28.0-34. 0) 06/01/21 11:47 MCHC 33.3 g/dL (30.0-3 6.0) 06/01/21 11:47 RDW 12.9 % (12.1-15.1 ) 06/01/21 11:47 Plt Count 262 10^3/cmm (130 -400) 06/01/21 11:47 MPV 9.0 fL (7.4-10.4) 06/01/21 11:47 Neut % (Auto) 65.8 % 06/01/21 11:47 Lymph % (Auto) 22.4 % 06/01/21 11:47 Sanders % (Auto) 9.1 % 06/01/21 11:47 Eos % (Auto) 2.1 % 06/01/21 11:47 Baso % (Auto) 0.3 % 06/01/21 11:47 Neut # (Auto) 3.76 10^3/uL (1.8 -7.7) 06/01/21 11:47 Lymph # (Auto) 1.3 10^3/uL (0.8- 4.8) 06/01/21 11:47 Sanders # (Auto) 0.5 10^3/uL (0.2- 0.9) 06/01/21 11:47 Eos # (Auto) 0.1 10^3/uL (0.0- 0.8) 06/01/21 11:47 Baso # (Auto) 0.0 10^3/uL (0.0- 0.1) 06/01/21 11:47 Nucleated RBC % (a uto) 0 % 06/01/21 11:47 Nucleated RBCs # 0.0 /100WBC 06/01/21 11:47 Sodium 132 mmol/L (136-1 45) L 06/01/21 11:47 Potassium 3.7 mmol/L (3.5-5 .1) 06/01/21 11:47 Chloride 97 mmol/L (98-107 ) L 06/01/21 11:47 Carbon Dioxide 25 mmol/L (22-29) 06/01/21 11:47 Anion Gap 13.7 (5-19) 06/01/21 11:47 BUN 22 mg/dL (6-20) H 06/01/21 11:47 Creatinine 0.7 mg/dL (0.5-0. 9) 06/01/21 11:47 GFR Calculation 88.9 mL/min (90-1 30) L 06/01/21 11:47 Glucose 121 mg/dL (65-115 ) H 06/01/21 11:47 Calculated Osmolal ity 279 mOsm/kg (285- 295) L 06/01/21 11:47 Calcium 8.8 mg/dL (8.5-10 .5) 06/01/21 11:47 Total Bilirubin 0.6 mg/dL (0.15-1 .2) 06/01/21 11:47 AST 23 U/L (0-32) 06/01/21 11:47 ALT 18 U/L (0-33) 06/01/21 11:47 Alkaline Phosphata se 80 IU/L (35-105) 06/01/21 11:47 Total Protein 7.0 g/dL (6.6-8.7 ) 06/01/21 11:47 Albumin 4.0 g/dL (3.5-5.2 ) 06/01/21 11:47 Globulin 3.0 g/dL (1.3-4.6 ) 06/01/21 11:47 Lipase 21 U/L (13-60) 06/01/21 11:47 HCG, Qual Negative (Negati ve) 06/01/21 13:16 Salicylates < 0.3 mg/dL (3-10 ) L 06/01/21 11:47 Urine Opiates Scre en Negative ng/mL (N egative) 06/01/21 11:47 Acetaminophen < 5.0 ug/mL (10-3 0) L 06/01/21 11:47 Ur Barbiturates Sc reen Negative ng/mL (N egative) 06/01/21 11:47 Ur Phencyclidine S crn Negative ng/mL (N egative) 06/01/21 11:47 Ur Amphetamines Sc reen Positive ng/mL (N egative) H 06/01/21 11:47 U Benzodiazepines Scrn Negative ng/mL (N egative) 06/01/21 11:47 Urine Cocaine Scre en Negative ng/mL (N egative) 06/01/21 11:47 U Marijuana (THC) Screen Negative ng/mL (N egative) 06/01/21 11:47 Ethyl Alcohol < 10 mg/dL (0-10) 06/01/21 11:47 Vitals: Last Vital Signs Temp 97.9 F 06/04/21 06:00 Pulse 79 06/04/21 11:20 Resp 17 06/04/21 11:20 BP 134/93 06/04/21 11:20 Pulse Ox 98 06/04/21 11:20 Discharge Plan Discharge Patient Disposition: Home Condition: Stable Prescriptions: Continued albuterol sulfate [ProAir HFA] 90 mcg/actuation HFA aerosol inhaler 2 inh inhalation Q4H PRN (Reason: shortness of breath or wheezing) Qty: 8.5 3RF sertraline [Zoloft] 50 mg tablet 50 mg PO QAM 0RF lisinopril 10 mg tablet 10 mg PO DAILY 0RF Dose Instruction: TAKE 1 TABLET BY MOUTH DAILY fluticasone propionate 50 mcg/actuation spray,suspension 1 spray intranasal BID 0RF Rx Instructions: administer into each nostril gabapentin 300 mg capsule 300 mg PO BID 0RF folic acid 1 mg tablet 1 mg PO DAILY 0RF Discharge Orders: Discharge Order (Routine); Ordered 06/04/21 Ordered By: Johnson Sarabia Referrals: [facility] [Other] Norma Gary PMHNP [Staff Physician] - 06/09/21 11:45 am Aye Farley PMHNP [Staff Physician] - 08/14/21 12:45 pm Storm Walton FNP [Primary Care Provider] - 06/08/21 11:00 am (Follow up) Discharge Diet: Usual diet Discharge Activity: Resume usual activity Patient Instructions: Depression (ED), Anxiety (ED), Opioid Safety Discharge Attestations NPU Time Spent in Discharge Care*: less than 30 min Specific Discharge Activities: Specific discharge activities: educating patient, discussing with leather case finisher/social workers/dc planners, documenting/other paperwork and evaluating patient/reviewing data Coding Level of Care Code Acute Chg FW DC note Diagnoses Depression with suicidal ideation F32.A; R45.851 Anxiety F41.9 Stress F43.9 Major depressive disorder, recurrent severe without psychotic features F33.2 Bereavement Z63.4 Nicotine dependence, cigarettes, uncomplicated F17.210 Methamphetamine dependence, episodic F15.20 PTSD (post-traumatic stress disorder) F43.10 Severe alcohol dependence F10.20
== END 2021-06-04 12:20 | disposition home or self-care (01) | DRG 880 ==
LOC: ER 11:55 → NP 13:08
PROVIDERS: Admitting Provider Psychiatry & Neurology Psychiatry; Emergency Provider Emergency Medicine; PCP Registered Nurse; Visit Provider Psychiatry & Neurology Psychiatry
DX: F41.9 Anxiety disorder, unspecified (principal); R45.851 Suicidal ideations; F33.2 Major depressive disorder, recurrent severe without psychotic features; F15.20 Other stimulant dependence, uncomplicated; T42.6X2A Poisoning by other antiepileptic and sedative-hypnotic drugs, intentional self-harm, initial encounter; F43.9 Reaction to severe stress, unspecified; Z63.4 Disappearance and death of family member; F17.210 Nicotine dependence, cigarettes, uncomplicated; F43.10 Post-traumatic stress disorder, unspecified; F10.20 Alcohol dependence, uncomplicated; E66.09 Other obesity due to excess calories; Z68.31 Body mass index [BMI] 31.0-31.9, adult
CPT/HCPCS: 36415; 80053; 80306; 80307; 83690; 84703; 85025; 93005; 94640; 97150; 97165; 99285; J3535

== ENCOUNTER 2021-07-24 11:30 | Emergency (ER) | payer MEDICAID, SELFPAY ==
--- NOTE | 2021-07-24 12:14 | XR_ITS ---
WS: [id number] Exam: XR chest 1V portable [id number] Date/Time of Exam: 07/24/2021 12:20 PM Reason For Exam: dyspnea No prior exams. The lungs are fully expanded and clear. Normal cardiomediastinal structures. Bony elements are intact . No pleural effusions. XR/XR chest 1V portable [id number] IMPRESSION: 1. Normal chest.
--- NOTE | 2021-07-24 12:14 | ECG_ITS ---
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 Measurements Intervals [place] Rate: 101 P: 80 MT: 173 QRS: 83 QRSD: 77 T: 75 QT: 327 QTc: 424 Interpretive Statements SINUS TACHYCARDIA POSSIBLE LEFT ATRIAL ENLARGEMENT [-0.1mV P-WAVE IN V1/V2] SEPTAL MYOCARDIAL INFARCTION , OF INDETERMINATE AGE [40+ ms Q WAVE IN V1/V2] Compared to ECG 06/01/2021 12:06:07 Sinus rhythm no longer present Myocardial infarct finding still present Electronically Signed On 07-24-2021 22:04:22 CDT by Marlon Valles M.D. [id number]
[2021-07-24 12:22] VITALS: BP 148/85; PULSE 107; RESP 18; TEMP 36.8; O2SAT 96; BMI 30.7
--- NOTE | 2021-07-24 14:14 | ECG_ITS ---
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 Measurements Intervals [place] Rate: 98 P: 71 NC: 181 QRS: 81 QRSD: 68 T: 71 QT: 321 QTc: 410 Interpretive Statements SINUS RHYTHM POSSIBLE LEFT ATRIAL ENLARGEMENT [-0.1mV P-WAVE IN V1/V2] SEPTAL MYOCARDIAL INFARCTION , OF INDETERMINATE AGE [40+ ms Q WAVE IN V1/V2] Compared to ECG 07/24/2021 13:17:54 Sinus tachycardia no longer present Myocardial infarct finding still present Electronically Signed On 07-24-2021 22:25:38 CDT by Marlon Valles M.D. [id number]
[2021-07-24 15:08] LABS: Troponin(5th) Baseline 10 ng/L (0-10)
[2021-07-24 15:15] LABS: Blood Urea Nitrogen 12 mg/dL (6-20); Carbon Dioxide 26 mmol/L (22-29); Chloride 103 mmol/L (98-107); Glomerular Filtration Rate 88.6 mL/min (90-130); Glucose 94 mg/dL (65-115); NT Pro B Type Natriuretic Pept 348 pg/mL (0-125); Osmolality Calculated 290 mOsm/kg (285-295); Sodium 140 mmol/L (136-145)
[2021-07-24 15:20] LABS: Anion Gap 15.1 (5-19); Potassium 4.1 mmol/L (3.5-5.1)
--- NOTE | 2021-07-24 15:32 | W.ED.SOB ---
HPI - SOB/Dyspnea General: Chief Complaint: Shortness of Breath/Dyspnea Stated Complaint: SOB Time Seen by Provider: 07/24/21 12:15 Source: patient Mode of arrival: ambulatory Limitations: no limitations History of Present Illness: HPI Narrative: This patient presented to the emergency department by private vehicle from her home. She states she cannot breathe. She states she is filled her inhaler earlier this week but despite its use she feels like she is short of breath and wheezing. She states she has had a cough associated with her symptoms as well. She denies any known fevers. She denies any known exposure to infectious disease. She has a smoker. She has a longstanding history of asthma. No history of thromboembolic disease. She states that she is unimmunized against COVID-19 but has not been exposed anyone that she knows of is been in currently infected. She [place] alone [place] very [place] location. She states she is made eating and drinking normally. She denies any nausea vomiting and diarrhea. MD elicited complaint: shortness of breath and cough Pertinent past history: COPD and asthma Timing: intermittent and progressively worsening Exacerbating factors: coughing Relieving factors: bronchodilators Known history of: asthma Associated symptoms: Reports cough; Deny abdominal pain, chest pain, extremity pain, fever(s), hemoptysis, nausea, palpitations, polydipsia, polyuria or vomiting Related Data: Home oxygen amount: none Review of Systems Const: Denies: fever(s), chills or body aches Eyes: Denies: change in vision ENMT: Denies: throat pain, odynophagia or nasal discharge Card: Denies: chest pain, palpitations, irregular heart rhythm or edema Resp: Reports: dyspnea, non-productive cough and wheezing; Denies: hemoptysis GI: Denies: abdominal pain, nausea, vomiting or diarrhea : Denies: flank pain, difficulty voiding, dysuria or urinary frequency Musc: Denies: neck pain, extremity pain or extremity swelling Skin/Breast: Denies: rash Neuro: Denies: headache(s), numbness in extremities or weakness in extremities Psych: Reports: anxiety Endo: Denies: polyuria or polydipsia PFS ED PFSH: Medical History Alcohol abuse Allergic rhinitis Anxiety Bereavement COPD (chronic obstructive pulmonary disease) with acute bronchitis Major depressive disorder, 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, episodic Nicotine dependence, cigarettes, uncomplicated Obesity Psychiatric care PTSD (post-traumatic stress disorder) Severe alcohol dependence Surgical History Hx of appendectomy Social History Smoking and tobacco status: current every day smoker cigarettes Packs smoked per day: 1 Quit status (tobacco): considering quitting Alcohol intake: current Alcohol intake frequency: other Alcohol type: beer and hard liquor Desire information about alcohol rehabilitation?: Yes Marital status: Legally Number of children: 4 Female Reproductive History: Date of last menstrual period: 07/22/20 Physical Exam Narrative: EXAM NARRATIVE: The patient is alert makes good eye contact. She has very rapid pressured speech with some mild dyspnea Const: COMMON NORMALS: patient oriented x3 GENERAL APPEARANCE: cooperative and anxious NUTRITIONAL APPEARANCE: overweight HENMT: COMMON NORMALS: normocephalic, Normal nasal mucous membranes and turbinates present and moist oral mucous membranes HEAD & SCALP: normocephalic FACE & SINUS: normal facial exam and sinuses nontender NOSE: Normal nasal mucous membranes and turbinates present Eye: COMMON NORMALS: Equal, round and reactive pupils present, EOMs intact bilaterally and conjunctivae normal CONJUNCTIVA: Yes conjunctivae normal PUPIL: Yes Equal, round and reactive pupils present Neck/C-Spine: COMMON NORMALS: full ROM, no lymphadenopathy, supple and no JVD Chest: COMMONS NORMALS: normal inspection of the chest Resp: EFFORT & INSPECTION: Yes able to speak in complete sentences AUSCULTATION: rhonchi lower bilaterally and wheezes expiratory wheezes Cardio: COMMON NORMALS: no JVD, regular rate, regular rhythm, No murmurs present (Cardio) and Peripheral pulses 2+ throughout RATE: regular rate RHYTHM: regular rhythm PERIPHERAL PULSES: Peripheral pulses 2+ throughout GI: COMMON NORMALS: Normal to inspection, nondistended, normoactive bowel sounds present and Soft to palpation PALPATION: Yes Soft to palpation : COMMON NORMALS: Yes no CVA tenderness BLADDER/KIDNEY EXAM: Yes no CVA tenderness Back/Pelvis: COMMON NORMALS: no CVA tenderness, thoracic and lumbar spine normal to inspection, no thoracic nor lumbar tenderness and thoraco-lumbar ROM normal Extremity: COMMON NORMALS: normal to inspection, full ROM, capillary refill normal, no clubbing, cyanosis or edema, no calf tenderness and no pedal edema Neuro: COMMON NORMALS: patient oriented x3, moves all extremities, no focal motor deficits and no sensory deficits noted CRANIAL NERVES: Yes CN normal except as noted SPEECH: speech normal Psych: COMMON NORMALS: mental status grossly normal and Normal thought process present ACTIVITY/MOTOR BEHAVIOR: Yes restless SPEECH: Yes rapid THOUGHT PROCESS: Normal thought process present ATTENTION/CONCENTRATION: Yes attention grossly intact Skin: COMMON NORMALS: no rashes or lesions noted and turgor normal GENERAL SKIN EXAM: no rashes or lesions noted and turgor normal Course Reevaluation(s): Reevaluation #1: Patient states subjectively she is feeling much better. Repeat auscultation of chest reveals much clear. She still has some faint expiratory wheezes but no accessory muscle usage, rhonchi etc. Discussed patient's preference and she would prefer to be discharged on additional therapy rather than continued observation and/or admission. We will plan on discharging on 7-day course of prednisone, add doxycycline given her smoking history, making sure that she has a additional beta agonist to use. We also discussed return precautions. Time: 16:50 Vital Signs: Vital signs: Vital Signs Temperature 98.2 F 07/24/21 12:22 Pulse Rate 107 H 07/24/21 16:07 Respiratory Rate 20 H 07/24/21 16:07 Blood Pressure 163/118 07/24/21 16:07 Pulse Oximetry 96 07/24/21 16:07 MDM - SOB/Dyspnea Medical Decision Making Patient with known history of COPD, asthma who presented with progressive symptoms wheezing, shortness of breath etc. Work-up here does not suggest thromboembolic disease, ACS, CHF etc. Consistent with exacerbation of COPD and asthma. She has improved with treatment and we will continue outpatient treatment at her request rather than any prolonged observation. We discussed return precautions, smoking cessation etc. Stable at this time. Medical Records I reviewed the patient's medical records. Lab Data I reviewed the patient's lab results. : 07/24/21 15:15 07/24/21 14:40 Labs/Radiology: Radiology Impressions Chest X-Ray 07/24/21 12:14 IMPRESSION: 1. Normal chest. Laboratory Results WBC 4.2 10^3/uL (4.0-10.0) 07/24/21 15:15 RBC 4.27 10^6/uL (4.1-5.3) 07/24/21 15:15 Hgb 13.6 g/dL (11.5-15.3) 07/24/21 15:15 Hct 41.9 % (37.0-47.0) 07/24/21 15:15 MCV 98.1 fl (81-99) 07/24/21 15:15 MCH 31.9 pg (28.0-34.0) 07/24/21 15:15 MCHC 32.5 g/dL (30.0-36.0) 07/24/21 15:15 RDW 14.1 % (12.1-15.1) 07/24/21 15:15 Plt Count 226 10^3/cmm (130-400) 07/24/21 15:15 MPV 9.8 fL (7.4-10.4) 07/24/21 15:15 Neut % (Auto) 62.5 % 07/24/21 15:15 Lymph % (Auto) 26.1 % 07/24/21 15:15 Graham % (Auto) 7.1 % 07/24/21 15:15 Eos % (Auto) 3.6 % 07/24/21 15:15 Baso % (Auto) 0.5 % 07/24/21 15:15 Neut # (Auto) 2.63 10^3/uL (1.8-7.7) 07/24/21 15:15 Lymph # (Auto) 1.1 10^3/uL (0.8-4.8) 07/24/21 15:15 Graham # (Auto) 0.3 10^3/uL (0.2-0.9) 07/24/21 15:15 Eos # (Auto) 0.2 10^3/uL (0.0-0.8) 07/24/21 15:15 Baso # (Auto) 0.0 10^3/uL (0.0-0.1) 07/24/21 15:15 Nucleated RBC % (auto) 0 % 07/24/21 15:15 Nucleated RBCs # 0.0 /100WBC 07/24/21 15:15 Sodium 140 mmol/L (136-145) 07/24/21 14:40 Potassium 4.1 mmol/L (3.5-5.1) 07/24/21 14:40 Chloride 103 mmol/L (98-107) 07/24/21 14:40 Carbon Dioxide 26 mmol/L (22-29) 07/24/21 14:40 Anion Gap 15.1 (5-19) 07/24/21 14:40 BUN 12 mg/dL (6-20) 07/24/21 14:40 Creatinine 0.7 mg/dL (0.5-0.9) 07/24/21 14:40 GFR Calculation 88.6 mL/min (90-130) L 07/24/21 14:40 Glucose 94 mg/dL (65-115) 07/24/21 14:40 Calculated Osmolality 290 mOsm/kg (285-295) 07/24/21 14:40 Calcium 9.0 mg/dL (8.5-10.5) 07/24/21 14:40 Troponin T Baseline 10 ng/L (0-10) 07/24/21 14:40 Troponin T 120 Minute 7.80 ng/L (0-10) 07/24/21 15:15 Delta Troponin T -2.20 ABS# (0-10) L 07/24/21 15:15 NT-Pro-B Natriuret Pep 348 pg/mL (0-125) H 07/24/21 14:40 EKG Data EKG 1: I personally reviewed and interpreted this EKG as follows: EKG interpretation time: 15:37 Interpretation: Underlying rhythm of 90 bpm. She has evidence to suggest right atrial enlargement. She has underlying sinus rhythm. Normal intervals, normal axis. No acute ST-T wave changes noted at this time. No acute changes from prior EKGs within our system Discharge Plan Discharge Patient Disposition: Home Clinical Impression: COPD (chronic obstructive pulmonary disease) with acute bronchitis, Cigarette smoker two packs a day or less Condition: Stable Prescriptions: New prednisone 20 mg tablet 20 mg PO BID 7 Days Qty: 14 0RF doxycycline hyclate 100 mg capsule 100 mg PO BID 7 Days Qty: 14 0RF albuterol sulfate 90 mcg/actuation HFA aerosol inhaler 2 inh inhalation Q6H PRN (Reason: shortness of breath or wheezing) Qty: 8.5 0RF No Action albuterol sulfate [ProAir HFA] 90 mcg/actuation HFA aerosol inhaler 2 inh inhalation Q4H PRN (Reason: shortness of breath or wheezing) Qty: 8.5 3RF sertraline [Zoloft] 50 mg tablet 50 mg PO QAM 0RF lisinopril 10 mg tablet 10 mg PO DAILY 0RF Dose Instruction: TAKE 1 TABLET BY MOUTH DAILY fluticasone propionate 50 mcg/actuation spray,suspension 1 spray intranasal BID 0RF Rx Instructions: administer into each nostril gabapentin 300 mg capsule 300 mg PO BID 0RF folic acid 1 mg tablet 1 mg PO DAILY 0RF Vitamin B-12 50 mcg Tablet 50 mcg PO DAILY 0RF Discharge Orders: Discharge ED (Routine); Ordered 07/24/21 Ordered By: Laron Wu Referrals: Storm Walton FNP [Primary Care Provider] - Discharge Diet: Usual diet and Low Salt Patient Instructions: Opioid Safety Activity Restrictions/Additional Instructions: Do not smoke cigarettes. Do not use illegal street drugs. Take the new medications to include your inhaler, steroids, antibiotics as prescribed. If your symptoms do not continue to improve, worsen or other new symptoms develop return to this or the nearest emergency department. 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
[2021-07-24 15:50] VITALS: PULSE 106; RESP 18; O2SAT 96
[2021-07-24] MEDS: ipratropium-albuterol 3 mL Neb INHALATION (15:50)
[2021-07-24 15:55] VITALS: PULSE 105
[2021-07-24 15:59] LABS: Basophils % 0.5 %; Eosinophils # 0.2 10^3/uL (0.0-0.8); Eosinophils % 3.6 %; Hematocrit 41.9 % (37.0-47.0); Hemoglobin 13.6 g/dL (11.5-15.3); Lymphocytes # 1.1 10^3/uL (0.8-4.8); Lymphocytes % 26.1 %; Mean Corpuscular HGB Conc 32.5 g/dL (30.0-36.0); Mean Corpuscular Hemoglobin 31.9 pg (28.0-34.0); Mean Corpuscular Volume 98.1 fl (81-99); Mean Platelet Volume 9.8 fL (7.4-10.4); Monocytes # 0.3 10^3/uL (0.2-0.9); Monocytes % 7.1 %; Neutrophils # 2.63 10^3/uL (1.8-7.7); Neutrophils % 62.5 %; Nucleated Red Blood Cells % 0 %; Platelet Count 226 10^3/cmm (130-400); Red Blood Count 4.27 10^6/uL (4.1-5.3); Red Cell Distribution Width 14.1 % (12.1-15.1); White Blood Count 4.2 10^3/uL (4.0-10.0)
[2021-07-24 16:07] VITALS: BP 163/118; PULSE 107; RESP 20; O2SAT 96
--- NOTE | 2021-07-24 16:08 | PC.NURSE ---
PT placed on continuous NIBP, SpO2, and CM
[2021-07-24] MEDS: acetaminophen 325 mg Tablet 650 MG PO (16:41)
[2021-07-24 17:10] VITALS: BP 166/112; PULSE 100; RESP 18; O2SAT 97
== END 2021-07-24 17:12 | disposition home or self-care (01) ==
PROVIDERS: Emergency Medicine; Emergency Provider Emergency Medicine; PCP Registered Nurse
DX: J44.0 Chronic obstructive pulmonary disease with (acute) lower respiratory infection (principal); J20.9 Acute bronchitis, unspecified; J44.1 Chronic obstructive pulmonary disease with (acute) exacerbation; F17.210 Nicotine dependence, cigarettes, uncomplicated
CPT/HCPCS: 71045; 80048; 83880; 84484; 85025; 93005; 94640; 96374; 99285; J2930

== ENCOUNTER 2022-06-19 16:59 | Inpatient (IN) | payer MEDICAID, SELFPAY ==
[2022-06-19] VITALS (38 sets, daily range): BP systolic 126–156; BP diastolic 89–119; PULSE 84–107; RESP 15–26; TEMP 36.3–36.6; O2SAT 92–100; BMI 33.9; BMI 33.0
--- NOTE | 2022-06-19 17:05 | ED_ITS ---
Documented by User: Stevie Monroy DO 06/19/22 17:14 HPI - Overdose General: Chief Complaint: Overdose Stated Complaint: Overdose Time Seen by Provider: 06/19/22 17:05 History of Present Illness: Patient brought in by EMS with complaints of intentional overdose. Patient admitted to taking 15-30 gabapentin 600 mg tablets approximately 1 hour prior to arrival. Patient states this was an attempt to end it all because she is just tired. complaint: intentional overdose Onset (ago): hour(s) (1 hour prior) Intent: suicide attempt Context: Intentional Overdose: other (Just wanting to ended it all) Treatments Prior to Arrival: none Review of Systems General: Reports: 10 or more systems reviewed and unremarkable except in HPI and below Const: Denies: fever(s) or chills Eyes: Denies: change in vision or blurry vision ENMT: Denies: throat pain or odynophagia Card: Denies: chest pain, palpitations, irregular heart rhythm or edema Resp: Denies: dyspnea or productive cough GI: Denies: abdominal pain, nausea, vomiting or diarrhea : Denies: flank pain or difficulty voiding Musc: Denies: neck pain or back pain Skin/Breast: Denies: rash or pruritus PFSH ED PFSH: Medical History Alcohol abuse Allergic rhinitis Anxiety Bereavement COPD (chronic obstructive pulmonary disease) with acute bronchitis Major depressive disorder, 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, episodic Nicotine dependence, cigarettes, uncomplicated Obesity Psychiatric care PTSD (post-traumatic stress disorder) Severe alcohol dependence Surgical History Hx of appendectomy Social History Smoking and tobacco status: current every day smoker cigarettes Packs smoked per day: 1 Quit status (tobacco): considering quitting Alcohol intake: current Alcohol intake frequency: other Alcohol type: beer and hard liquor Desire information about alcohol rehabilitation?: Yes Substance/Drug Use: never Marital status: Legally Number of children: 4 Physical Exam Const: COMMON NORMALS: no acute distress, patient oriented x3, no limitations, alert and well nourished HENMT: COMMON NORMALS: normocephalic, atraumatic, hearing grossly normal bilaterally, external ears normal, Normal external nose present and moist oral m ucous membranes HEAD & SCALP: normocephalic and atraumatic NOSE: Normal external nose present EXTERNAL EAR: Yes external ears normal Eye: COMMON NORMALS: Equal, round and reactive pupils present, EOMs intact bilaterally, conjunctivae normal and no scleral icterus CONJUNCTIVA: Yes conjunctivae normal PUPIL: Yes Equal, round and reactive pupils present Neck/C-Spine: COMMON NORMALS: full ROM, no lymphadenopathy, supple, no meningeal signs, no JVD and Thyroid normal THYROID: Thyroid normal Lymph: LYMPHATIC: no lymphadenopathy noted and no lymphedema noted Chest: COMMONS NORMALS: normal inspection of the chest and normal palpation of entire chest wall Resp: COMMON NORMALS: normal respiratory effort, No retractions, No use of accessory muscles and clear to auscultation bilaterally AUSCULTATION: clear to auscultation bilaterally Cardio: COMMON NORMALS: no JVD, regular rate, regular rhythm, S1 normal heart sound present, S2 normal heart sound present, No gallops present (Cardio), No clicks present (Cardio), No murmurs present (Cardio) and No rub (Cardio) RATE: regular rate RHYTHM: regular rhythm HEART SOUNDS: S1 normal heart sound present and S2 normal heart sound present GI: COMMON NORMALS: Normal to inspection, nondistended, normoactive bowel sounds present, Soft to palpation, non-tender, No hepatosplenomegaly present and no masses PALPATION: Yes Soft to palpation and Yes No hepatosplenomegaly present Extremity: COMMON NORMALS: normal to inspection Neuro: COMMON NORMALS: patient oriented x3, CN's II-XII intact bilaterally, moves all extremities, no focal motor deficits and no sensory deficits noted SENSORIUM/ORIENTATION: Yes alert MENINGEAL SIGNS: Yes no meningeal signs Psych: COMMON NORMALS: speech normal APPEARANCE: Yes unkempt ATTITUDE: Yes calm and Yes engaged ACTIVITY/MOTOR BEHAVIOR: Yes appropriate eye contact SPEECH: Yes normal speech MOOD & AFFECT: Yes depressed mood THOUGHT CONTENT: Yes Suicidality present Course Vital Signs: Vital signs: Vital Signs Temperature 97.3 F L 06/19/22 17:00 Pulse Rate 92 06/19/22 19:17 Respiratory Rate 16 06/19/22 19:17 Blood Pressure 148/103 06/19/22 19:17 Pulse Oximetry 96 06/19/22 19:17 Oxygen Delivery Me thod Room Air 04/22/23 19:14 MDM - Overdose Differential Diagnosis Likely drug overdose Medical Records I reviewed the patient's medical records. Lab Data I reviewed the patient's lab results. 06/19/22 17:19 06/19/22 17:19 Radiology Impressions Chest X-Ray 06/19/22 17:08 IMPRESSION: No acute cardiopulmonary abnormality. Laboratory Results WBC 7.4 10^3/uL (4.0-10.0) 06/19/22 17:19 RBC 4.71 10^6/uL (4.1-5.3) 06/19/22 17:19 Hgb 14.1 g/dL (11.5-15.3) 06/19/22 17:19 Hct 43.1 % (37.0-47.0) 06/19/22 17:19 MCV 91.5 fl (81-99) 06/19/22 17:19 MCH 29.9 pg (28.0-34.0) 06/19/22 17: MCHC 32.7 g/dL (30.0-36.0) 06/19/22 17:19 RDW 14.5 % (12.1-15.1) 06/19/22 17:19 Plt Count 285 10^3/cmm (130-400) 06/19/22 17:19 MPV 9.0 fL (7.4-10.4) 06/19/22 17:19 Neut % (Auto) 60.7 % 06/19/22 17:19 Lymph % (Auto) 32.6 % 06/19/22 17:19 [place] % (Auto) 5.4 % 06/19/22 17:19 Eos % (Auto) 1.1 % 06/19/22 17:19 Baso % (Auto) 0.1 % 06/19/22 17:19 Neut # (Auto) 4.46 10^3/uL (1.8-7.7) 06/19/22 17:19 Lymph # (Auto) 2.4 10^3/uL (0.8-4.8) 06/19/22 17:19 [place] # (Auto) 0.4 10^3/uL (0.2-0.9) 06/19/22 17:19 Eos # (Auto) 0.1 10^3/uL (0.0-0.8) 06/19/22 17:19 Baso # (Auto) 0.0 10^3/uL (0.0-0.1) 06/19/22 17:19 Nucleated RBC % (auto) 0 % 06/19/22 17:19 Nucleated RBCs # 0.0 /100WBC 06/19/22 17:19 PT 12.50 SECONDS (12.1-14.9) 06/19/22 17:19 INR 0.91 (0.8-1.2) 06/19/22 17:19 Specimen Type Arterial 06/19/22 17:38 Sample Site Radial, left 06/19/22 17:38 ABG pH 7.37 (7.35-7.45) 06/19/22 17:38 ABG pCO2 45.5 mmHg (35-45) H 06/19/22 17:38 ABG pO2 70.4 mmHg (80.0-100.0) L 06/19/22 17:38 ABG HCO3 26.5 mmol/L (22-26) H 06/19/22 17:38 ABG O2 Saturation 93.9 06/19/22 17:38 ABG Base Excess 0.8 mmol/L (-2.0-2.0) 06/19/22 17:38 Ben Test Pos 06/19/22 17:38 A-a O2 Gradient 3.1 mmHg (5-10) L 06/19/22 17:38 Hematocrit 44.2 % (37-47) 06/19/22 17:38 Hgb O2 Saturation 91.1 % (95-100) L 06/19/22 17:38 Carboxyhemoglobin 2.7 %THgb (0.4-20.1) 06/19/22 17:38 Methemoglobin 0.3 % (0.4-1.5) L 06/19/22 17:38 Total Hemoglobin 14.4 g/dL (12-16) 06/19/22 17:38 Sodium 149.0 mmol/L (131-143) H 06/19/22 17:38 Potassium 3.7 mmol/L (3.5-5.0) 06/19/22 17:38 Glucose 85.0 mg/dL (70-115) 06/19/22 17:38 Ionized Calcium 1.2 mmol/L (1.1-1.4) 06/19/22 17:38 O2 Delivery Device Room air 06/19/22 17:38 FiO2 21.0 % 06/19/22 17:38 Grounds/Maintenance Specialist ID glc 06/19/22 17:38 Sodium 132 mmol/L (136-145) L 06/19/22 17:19 Potassium 3.5 mmol/L (3.5-5.1) 06/19/22 17:19 Chloride 100 mmol/L (98-107) 06/19/22 17:19 Carbon Dioxide 24 mmol/L (22-29) 06/19/22 17:19 Anion Gap 11.5 (5-19) 06/19/22 17:19 BUN 15 mg/dL (6-20) 06/19/22 17:19 Creatinine 0.8 mg/dL (0.5-0.9) 06/19/22 17:19 GFR Calculation 75.6 mL/min (90-130) L 06/19/22 17:19 Glucose 88 mg/dL (65-115) 06/19/22 17:19 POC Glucose 93 mg/dL (70-110) 06/19/22 17:16 Calculated Osmolality 274 mOsm/kg (285-295) L 06/19/22 17:19 Lactic Acid 1.5 mmol/L (0.5-2.2) 06/19/22 17:32 Calcium 8.5 mg/dL (8.5-10.5) 06/19/22 17:19 Magnesium 2.2 mg/dL (1.7-2.3) 06/19/22 17:19 Total Bilirubin 0.3 mg/dL (0.15-1.2) 06/19/22 17:19 AST 17 U/L (0-32) 06/19/22 17:19 ALT 16 U/L (0-33) 06/19/22 17:19 Alkaline Phosphatase 74 U/L (35-105) 06/19/22 17:19 Total Protein 6.9 g/dL (6.6-8.7) 06/19/22 17:19 Albumin 4.1 g/dL (3.5-5.2) 06/19/22 17:19 Globulin 2.8 g/dL (1.3-4.6) 06/19/22 17:19 HCG, Qual Negative (Negative) 06/19/22 17:25 Urine Color Yellow (Yellow) 06/19/22 17:24 Urine Appearance Clear (CLEAR) 06/19/22 17:24 Urine pH 6 (5-7) 06/19/22 17:24 Ur Specific [place] 1.005 (1.005-1.030) 06/19/22 17:24 Urine Protein Neg (Negative) 06/19/22 17:24 Urine Glucose (UA) Norm (Normal) 06/19/22 17:24 Urine Ketones Negative (Negative) 06/19/22 17:24 Urine Blood 2+ (Negative) H 06/19/22 17:24 Urine Nitrate Negative (Negative) 06/19/22 17:24 Urine Bilirubin Neg (Negative) 06/19/22 17:24 Urine Urobilinogen Norm mg/dL (Negative) 06/19/22 17:24 Ur Leukocyte Esterase Negative (Negative) 06/19/22 17:24 Urine RBC 0-4 /hpf (0-2) H 06/19/22 17:24 Urine WBC 0-4 /hpf (0-5) H 06/19/22 17:24 Ur Squamous Epith Cells 0-4 /hpf (0-5) H 06/19/22 17:24 Amorphous Sediment Not Reportable 06/19/22 17:24 Urine Bacteria Trace /hpf (NONE) 06/19/22 17:24 Salicylates < 0.3 mg/dL (3-10) L 06/19/22 17:19 Urine Opiates Screen Negative ng/mL (Negative) 06/19/22 17:24 Acetaminophen < 5.0 ug/mL (10-30) L 06/19/22 17:19 Ur Barbiturates Screen Negative ng/mL (Negative) 06/19/22 17:24 Ur Phencyclidine Scrn Negative ng/mL (Negative) 06/19/22 17:24 Ur Amphetamines Screen Negative ng/mL (Negative) 06/19/22 17:24 U Benzodiazepines Scrn Negative ng/mL (Negative) 06/19/22 17:24 Urine Cocaine Screen Negative ng/mL (Negative) 06/19/22 17:24 U Marijuana (THC) Screen Negative ng/mL (Negative) 06/19/22 17:24 Ethyl Alcohol 172 mg/dL (0-10) H 06/19/22 17:19 EKG Data EKG 1: EKG interpretation date: 06/19/22 EKG interpretation time: 17:08 Prior EKG tracings: not available for review Interpretation: EKG showed sinus tachycardia with frequent PVCs, ventricular rate of 101, OH interval 160, QRS duration 85, QTc of 390, Discharge Plan Discharge Patient Disposition: Admitted As Inpatient Clinical Impression: Intentional overdose Condition: Stable Coding Level of Care Code ED Pad Assembler for Chg Fwd Documented by User: Stef Kirk DO 06/19/22 20:18 HPI - Overdose General: Chief Complaint: Overdose Stated Complaint: Overdose Time Seen by Provider: 06/19/22 17:05 PFSH ED PFSH: Medical History Alcohol abuse Allergic rhinitis Anxiety Bereavement COPD (chronic obstructive pulmonary disease) with acute bronchitis Major depressive disorder, 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, episodic Nicotine dependence, cigarettes, uncomplicated Obesity Psychiatric care PTSD (post-traumatic stress disorder) Severe alcohol dependence Surgical History Hx of appendectomy Social History Smoking and tobacco status: current every day smoker cigarettes Packs smoked per day: 1 Quit status (tobacco): considering quitting Alcohol intake: current Alcohol intake frequency: other Alcohol type: beer and hard liquor Desire information about alcohol rehabilitation?: Yes Substance/Drug Use: never Marital status: Legally Number of children: 4 Course Vital Signs: Vital signs: Vital Signs Temperature 97.3 F L 06/19/22 17:00 Pulse Rate 92 06/19/22 19:17 Respiratory Rate 16 06/19/22 19:17 Blood Pressure 148/103 06/19/22 19:17 Pulse Oximetry 96 06/19/22 19:17 Oxygen Delivery Me thod Room Air 06/19/22 19:14 MDM - Overdose Medical Decision Making 52-year-old female checked out to me by the previous physician at shift change. This young lady has taken quite a bit of gabapentin. She is awake, and talking. We are about 3.5 hours into her ingestion. We should be at about peak. Half- life is 5 to 7 hours. Laboratory is not remarkable. Blood gas shows a pH of 7.37. Spoke with psychiatry. Suggestion is ICU admission for the evening to clear the gabapentin. 96-hour paperwork has been written. Lab Data 06/19/22 17:19 06/19/22 17:19 Radiology Impressions Chest X-Ray 06/19/22 17:08 IMPRESSION: No acute cardiopulmonary abnormality. Laboratory Results WBC 7.4 10^3/uL (4.0-10.0) 06/19/22: RBC 4.71 10^6/uL (4.1-5.3) 06/19/22: Hgb 14.1 g/dL (11.5-15.3) 06/19/22: Hct 43.1 % (37.0-47.0) 06/19/22 17: MCV 91.5 fl (81-99) 06/19/22 17: MCH 29.9 pg (28.0-34.0) 06/19/22: MCHC 32.7 g/dL (30.0-36.0) 06/19/22 17:19 RDW 14.5 % (12.1-15.1) 06/19/22: Plt Count 285 10^3/cmm (130-400) 06/19/22: MPV 9.0 fL (7.4-10.4) 06/19/22: Neut % (Auto) 60.7 % 06/19/22: Lymph % (Auto) 32.6 % 06/19/22: [place] % (Auto) 5.4 % 06/19/22: Eos % (Auto) 1.1 % 06/19/22: Baso % (Auto) 0.1 % 06/19/22: Neut # (Auto) 4.46 10^3/uL (1.8-7.7) 04/22/23 17:19 Lymph # (Auto) 2.4 10^3/uL (0.8-4.8) 06/19/22 17:19 [place] # (Auto) 0.4 10^3/uL (0.2-0.9) 06/19/22 17:19 Eos # (Auto) 0.1 10^3/uL (0.0-0.8) 06/19/22 17:19 Baso # (Auto) 0.0 10^3/uL (0.0-0.1) 06/19/22 17:19 Nucleated RBC % (auto) 0 % 06/19/22 17:19 Nucleated RBCs # 0.0 /100WBC 06/19/22 17:19 PT 12.50 SECONDS (12.1-14.9) 06/19/22 17:19 INR 0.91 (0.8-1.2) 06/19/22 17:19 Specimen Type Arterial 06/19/22 17:38 Sample Site Radial, left 06/19/22 17:38 ABG pH 7.37 (7.35-7.45) 06/19/22 17:38 ABG pCO2 45.5 mmHg (35-45) H 06/19/22 17:38 ABG pO2 70.4 mmHg (80.0-100.0) L 06/19/22 17:38 ABG HCO3 26.5 mmol/L (22-26) H 06/19/22 17:38 ABG O2 Saturation 93.9 06/19/22 17:38 ABG Base Excess 0.8 mmol/L (-2.0-2.0) 06/19/22 17:38 Ben Test Pos 06/19/22 17:38 A-a O2 Gradient 3.1 mmHg (5-10) L 06/19/22 17:38 Hematocrit 44.2 % (37-47) 06/19/22 17:38 Hgb O2 Saturation 91.1 % (95-100) L 06/19/22 17:38 Carboxyhemoglobin 2.7 %THgb (0.4-20.1) 06/19/22 17:38 Methemoglobin 0.3 % (0.4-1.5) L 06/19/22 17:38 Total Hemoglobin 14.4 g/dL (12-16) 06/19/22 17:38 Sodium 149.0 mmol/L (131-143) H 06/19/22 17:38 Potassium 3.7 mmol/L (3.5-5.0) 06/19/22 17:38 Glucose 85.0 mg/dL (70-115) 06/19/22 17:38 Ionized Calcium 1.2 mmol/L (1.1-1.4) 06/19/22 17:38 O2 Delivery Device Room air 06/19/22 17:38 FiO2 21.0 % 06/19/22 17:38 Grounds/Maintenance Specialist ID glc 06/19/22 17:38 Sodium 132 mmol/L (136-145) L 06/19/22 17:19 Potassium 3.5 mmol/L (3.5-5.1) 06/19/22 17:19 Chloride 100 mmol/L (98-107) 06/19/22 17:19 Carbon Dioxide 24 mmol/L (22-29) 06/19/22 17:19 Anion Gap 11.5 (5-19) 06/19/22 17:19 BUN 15 mg/dL (6-20) 06/19/22 17:19 Creatinine 0.8 mg/dL (0.5-0.9) 06/19/22 17:19 GFR Calculation 75.6 mL/min (90-130) L 06/19/22 17:19 Glucose 88 mg/dL (65-115) 06/19/22 17:19 POC Glucose 93 mg/dL (70-110) 06/19/22 17:16 Calculated Osmolality 274 mOsm/kg (285-295) L 06/19/22 17:19 Lactic Acid 1.5 mmol/L (0.5-2.2) 06/19/22 17:32 Calcium 8.5 mg/dL (8.5-10.5) 06/19/22 17:19 Magnesium 2.2 mg/dL (1.7-2.3) 06/19/22 17:19 Total Bilirubin 0.3 mg/dL (0.15-1.2) 06/19/22 17:19 AST 17 U/L (0-32) 06/19/22 17:19 ALT 16 U/L (0-33) 06/19/22 17:19 Alkaline Phosphatase 74 U/L (35-105) 06/19/22 17:19 Total Protein 6.9 g/dL (6.6-8.7) 06/19/22 17:19 Albumin 4.1 g/dL (3.5-5.2) 06/19/22 17:19 Globulin 2.8 g/dL (1.3-4.6) 06/19/22 17:19 HCG, Qual Negative (Negative) 06/19/22 17:25 Urine Color Yellow (Yellow) 06/19/22 17:24 Urine Appearance Clear (CLEAR) 06/19/22 17:24 Urine pH 6 (5-7) 06/19/22 17:24 Ur Specific [place] 1.005 (1.005-1.030) 06/19/22 17:24 Urine Protein Neg (Negative) 06/19/22 17:24 Urine Glucose (UA) Norm (Normal) 06/19/22 17:24 Urine Ketones Negative (Negative) 06/19/22 17:24 Urine Blood 2+ (Negative) H 06/19/22 17:24 Urine Nitrate Negative (Negative) 06/19/22 17:24 Urine Bilirubin Neg (Negative) 06/19/22 17:24 Urine Urobilinogen Norm mg/dL (Negative) 06/19/22 17:24 Ur Leukocyte Esterase Negative (Negative) 06/19/22 17:24 Urine RBC 0-4 /hpf (0-2) H 06/19/22 17:24 Urine WBC 0-4 /hpf (0-5) H 06/19/22 17:24 Ur Squamous Epith Cells 0-4 /hpf (0-5) H 06/19/22 17:24 Amorphous Sediment Not Reportable 06/19/22 17:24 Urine Bacteria Trace /hpf (NONE) 06/19/22 17:24 Salicylates < 0.3 mg/dL (3-10) L 06/19/22 17:19 Urine Opiates Screen Negative ng/mL (Negative) 06/19/22 17:24 Acetaminophen < 5.0 ug/mL (10-30) L 06/19/22 17:19 Ur Barbiturates Screen Negative ng/mL (Negative) 06/19/22 17:24 Ur Phencyclidine Scrn Negative ng/mL (Negative) 06/19/22 17:24 Ur Amphetamines Screen Negative ng/mL (Negative) 06/19/22 17:24 U Benzodiazepines Scrn Negative ng/mL (Negative) 06/19/22 17:24 Urine Cocaine Screen Negative ng/mL (Negative) 06/19/22 17:24 U Marijuana (THC) Screen Negative ng/mL (Negative) 06/19/22 17:24 Ethyl Alcohol 172 mg/dL (0-10) H 06/19/22 17:19 Discharge Plan Discharge Patient Disposition: Admitted As Inpatient Clinical Impression: Intentional overdose Condition: Stable Coding Level of Care Code ED Pad Assembler for Moncho Molina
--- NOTE | 2022-06-19 17:08 | ECG_ITS ---
[facility] Test Date: 2022-06-19 Pat Name: Xiomara Chavez Department: Room: Gender: Female Tax Investigator: : 1970 Requested By: Stevie Monroy Order Number: [id number] Brigitte MD: Jake Fagan M.D. Measurements Intervals [place] Rate: 101 P: 62 WV: 160 QRS: 52 QRSD: 85 T: 43 QT: 332 QTc: 431 Interpretive Statements SINUS TACHYCARDIA WITH FREQUENT VENTRICULAR PREMATURE COMPLEXES LOW QRS VOLTAGE IN PRECORDIAL LEADS [QRS DEFLECTION < 1.0 mV IN CHEST LEADS] SEPTAL MYOCARDIAL INFARCTION , OF INDETERMINATE AGE [40+ ms Q WAVE IN V1/V2] Compared to ECG 07/24/2021 15:35:43 Ventricular premature complex(es) now present Low QRS voltage now present Sinus rhythm no longer present Myocardial infarct finding still present Electronically Signed On 06-20-2022 9:42:22 CDT by Jake Fagan M.D. [email or web address]
--- NOTE | 2022-06-19 17:08 | XRR_ITS ---
PROCEDURE INFORMATION: Exam: XR Chest Exam date and time: 06/19/2022 5:15 PM Age: 52 years old Clinical indication: Other: Overdose TECHNIQUE: Imaging protocol: Radiologic exam of the chest. Views: 1 view. COMPARISON: CR XR chest 1V portable [id number] 07/24/2021 12:29 PM FINDINGS: Lungs: The lungs are clear. Pleural spaces: Unremarkable. No pleural effusion. No pneumothorax. Heart/Mediastinum: Unremarkable. No cardiomegaly. Bones/joints: Unremarkable. XR/XR chest 1V portable [id number] IMPRESSION: No acute cardiopulmonary abnormality.
[2022-06-19 17:21] LABS: Glucose Point of Care 93 mg/dL (70-110)
[2022-06-19 17:26] LABS: Basophils % 0.1 %; Eosinophils # 0.1 10^3/uL (0.0-0.8); Eosinophils % 1.1 %; Hematocrit 43.1 % (37.0-47.0); Hemoglobin 14.1 g/dL (11.5-15.3); Lymphocytes # 2.4 10^3/uL (0.8-4.8); Lymphocytes % 32.6 %; Mean Corpuscular HGB Conc 32.7 g/dL (30.0-36.0); Mean Corpuscular Hemoglobin 29.9 pg (28.0-34.0); Mean Corpuscular Volume 91.5 fl (81-99); Monocytes # 0.4 10^3/uL (0.2-0.9); Monocytes % 5.4 %; Neutrophils # 4.46 10^3/uL (1.8-7.7); Neutrophils % 60.7 %; Nucleated Red Blood Cells % 0 %; Platelet Count 285 10^3/cmm (130-400); Red Blood Count 4.71 10^6/uL (4.1-5.3); Red Cell Distribution Width 14.5 % (12.1-15.1); White Blood Count 7.4 10^3/uL (4.0-10.0)
--- NOTE | 2022-06-19 17:30 | PC.NURSE ---
called poison control and spoke with LAUREN Garcia regarding overdose. Reports per total dosage that pt reports she took, pt is in the toxic range. peak is 8 hours but symptoms can present between 3-12 hours after ingestion. symptoms include drowsiness, dizziness, slurred speech, agitation, hypotension, reflux tachycardia, and respiratory depression. for agitation, first line medications would be benzodiazapines such as lorazepam or diazepam. treatment includes fluids and vasopressures as needed. Radha will call back in 2 hours for update on pt. Dr. Monroy notified of conversation and poison control information. poison control to fax ER additional information regarding Gabapentin.
[2022-06-19] MEDS: sodium chloride 0.9% 1,000 ML 999 ML IV (17:33)
[2022-06-19 17:38] LABS: HCG Qualitative Urine. Negative (Negative)
[2022-06-19 17:38] LABS: INR 0.91 (0.8-1.2)
[2022-06-19 17:44] LABS: Acetaminophen < 5.0 ug/mL (10-30); Alanine Aminotransferase 16 U/L (0-33); Albumin Level 4.1 g/dL (3.5-5.2); Alcohol Level 172 mg/dL (0-10); Alkaline Phosphatase 74 U/L (35-105); Anion Gap 11.5 (5-19); Aspartate Amino Transferase 17 U/L (0-32); Blood Urea Nitrogen 15 mg/dL (6-20); Calcium 8.5 mg/dL (8.5-10.5); Carbon Dioxide 24 mmol/L (22-29); Chloride 100 mmol/L (98-107); Globulin 2.8 g/dL (1.3-4.6); Glomerular Filtration Rate 75.6 mL/min (90-130); Glucose 88 mg/dL (65-115); Magnesium 2.2 mg/dL (1.7-2.3); Osmolality Calculated 274 mOsm/kg (285-295); Potassium 3.5 mmol/L (3.5-5.1); Salicylate < 0.3 mg/dL (3-10); Sodium 132 mmol/L (136-145); Total Bilirubin 0.3 mg/dL (0.15-1.2); Total Protein 6.9 g/dL (6.6-8.7)
[2022-06-19 17:44] LABS: Specific Gravity, Urine 1.005 (1.005-1.030); Urine Appearance Clear (CLEAR); Urine Color Yellow (Yellow); pH Urine 6 (5-7)
[2022-06-19 17:45] LABS: Add Urine Culture? No; Add Urine Microscopic? YES; Bacteria Urine TRACE /hpf; Bilirubin Urine Neg (Negative); Blood Urine 2+ (Negative); Glucose Urine UA Norm (Normal); Ketones Urine Negative (Negative); Leukocyte Esterase Urine Negative (Negative); Nitrate Urine Negative (Negative); Protein Urine Neg (Negative); RBC Urine 0-4 /hpf (0-2); Squamous Epithelial Cell Urine 0-4 /hpf (0-5); Urobilinogen Urine Norm (Negative); WBC Urine 0-4 /hpf (0-5)
[2022-06-19 17:50] LABS: ABG PCO2 45.5 mmHg (35-45); ABG PH Result 7.37 (7.35-7.45); Alveolar-Arterial Oxygen Gradi 3.1 mmHg (5-10); Arterial Blood Gas Hematocrit 44.2 % (37-47); Base Excess ABG 0.8 mmol/L (-2.0-2.0); Blood Gas Allen Test Pos; Blood Gas Operator Identificat glc; Blood Gas Sample Site Radial, left; Blood Gas Sample Type Arterial; Carboxyhemoglobin 2.7 %THgb (0.4-20.1); HCO3 ABG 26.5 mmol/L (22-26); HGB O2 Sat 91.1 % (95-100); Ionized Calcium Level - ABG 1.2 mmol/L (1.1-1.4); Methemoglobin 0.3 % (0.4-1.5); Oxygen Device ROOM AIR; Oxygen Saturation ABG 93.9; PO2 ABG 70.4 mmHg (80.0-100.0); Potassium Level - ABG 3.7 mmol/L (3.5-5.0); Total Hemoglobin 14.4 g/dL (12-16)
[2022-06-19 17:53] LABS: Amphetamines Screen Urine Negative (Negative); Barbiturates Screen Urine Negative (Negative); Benzodiazepines Screen Urine Negative (Negative); Cocaine Screen Urine Negative (Negative); Opiate Screen Urine Negative (Negative); PCP Screen Urine Negative (Negative); THC Screen Urine Negative (Negative)
--- NOTE | 2022-06-19 17:55 | PC.NURSE ---
PT PLACED ON CONTINUOUS NIBP, SPO2, AND CM
[2022-06-19 18:09] LABS: Lactic Sepsis W/Reflex 1.5 mmol/L (0.5-2.2)
--- NOTE | 2022-06-19 19:16 | PC.NURSE ---
Rounded on pt, pt sitting in bed with sitter in room. Pt does not appear to be in distress. Pt denies needs at this time.
--- NOTE | 2022-06-19 22:27 | PM.HP ---
Providers/Chief Complaint Admitting Physician: Bobby Viveros MD Primary Care Provider: Henry Whatley Chief Complaint: Overdose History of Present Illness Xiomara Chavez is a 52 year old female with a past medical history of alcohol abuse, COPD, major depressive disorder, history of drug abuse, PTSD, who presents [facility] due to SI attempt. She tells me that she has been under a lot of stress, and she took a handful of gabapentin with alcohol to alleviate her stress, strength of the gabapentin is 600 mg, she took roughly 15 to 30 tablets and is not exactly sure, how many, and attempt to end her life. She has been under a lot of stress, her son , so she is taking care of her of his children, she has been dealing with stress surrounding her neighbors, denies any chest pain, palpitations, shortness of breath, no headache, no blurry vision, no nausea, vomiting, does report alcohol use, denies seeing or hearing things are not there Review of Systems Const: Denies: fever(s) Card: Denies: chest pain Resp: Denies: dyspnea GI: Denies: abdominal pain : Denies: flank pain Medications/Allergies Home Medications Medication Instructions Recorded Confirmed Last Taken Type fluticasone propionate 50 1 spray intranasal BID 05/22/21 06/19/22 Unknown History mcg/actuation nasal spray,suspension folic acid 1 mg tablet 1 mg PO DAILY 05/22/21 06/19/22 05/29/21 History lisinopril 10 mg tablet 10 mg PO DAILY 05/22/21 06/19/22 07/24/21 History albuterol sulfate 90 mcg/actuation 2 inh inhalation Q6H PRN shortness 07/24/21 06/19/22 Unknown Rx aerosol inhaler of breath or wheezing #8.5 grams cyanocobalamin (vitamin B-12) 50 50 mcg PO DAILY 07/24/21 06/19/22 Unknown History mcg tablet (Vitamin B-12) gabapentin 400 mg capsule 400 mg PO TID 06/19/22 06/19/22 Unknown History omeprazole 20 mg capsule,delayed 20 mg PO DAILY 06/19/22 06/19/22 Unknown History release sertraline 100 mg tablet 100 mg PO DAILY 06/19/22 06/19/22 Unknown History Allergies Allergy/AdvReac Type Severity Reaction Status Date / Time loratadine [From [facility] [place]] Allergy ADR-Seizure Verified 07/24/21 16:12 PFSH Acute PFSH: Medical History Alcohol abuse Allergic rhinitis Anxiety Bereavement COPD (chronic obstructive pulmonary disease) with acute bronchitis Major depressive disorder, 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, episodic Nicotine dependence, cigarettes, uncomplicated Obesity Psychiatric care PTSD (post-traumatic stress disorder) Severe alcohol dependence Surgical History Hx of appendectomy Social History Smoking and tobacco status: current every day smoker cigarettes Packs smoked per day: 1 Quit status (tobacco): considering quitting Alcohol intake: current Alcohol intake frequency: other Alcohol type: beer and hard liquor Desire information about alcohol rehabilitation?: Yes Substance/Drug Use: never Marital status: Legally Number of children: 4 Female Reproductive History: Date of last menstrual period: 06/19/22 Vitals/I&O/Wt Last Vital Signs Temp 97.3 F L 06/19/22 17:00 Pulse 88 06/19/22 22:01 Resp 21 H 06/19/22 22:01 BP 126/89 06/19/22 22:01 Pulse Ox 93 06/19/22 22:01 O2 Del Method Room Air 06/19/22 21:45 06/19/22 06/19/22 06/19/22 06:59 14:59 22:59 Intake Total 1000 / 1000 Output Total 0 / 0 Balance 1000 / 1000 Weight last 48 hrs Weight 92.986 kg Weight 95.254 kg Physical Exam Const: COMMON NORMALS: no acute distress and patient oriented x3 Eye: COMMON NORMALS: Equal, round and reactive pupils present and EOMs intact bilaterally Neck/C-Spine: COMMON NORMALS: full ROM and no lymphadenopathy Lymph: LYMPHATIC: no lymphadenopathy noted Resp: COMMON NORMALS: normal respiratory effort, No retractions, No use of accessory muscles and clear to auscultation bilaterally AUSCULTATION: clear to auscultation bilaterally Cardio: COMMON NORMALS: regular rate, regular rhythm, S1 normal heart sound present and S2 normal heart sound present RATE: regular rate RHYTHM: regular rhythm HEART SOUNDS: S1 normal heart sound present and S2 normal heart sound present GI: COMMON NORMALS: Normal to inspection, nondistended, normoactive bowel sounds present, Soft to palpation and non-tender Extremity: COMMON NORMALS: no pedal edema Neuro: COMMON NORMALS: patient oriented x3, CN's II-XII intact bilaterally, moves all extremities and no focal motor deficits Psych: COMMON NORMALS: mental status grossly normal Data 06/19/22 17:19 06/19/22 17:19 A&P Assessment and plan (1) Intentional overdose: (2) Suicide attempt: (3) Alcohol abuse with withdrawal: Plan Suicide attempt, intentional drug overdose -Gabapentin -Watch QTc interval every 3 hours -Hold sertraline, as that can prolong QTc -Watch in ICU for 24 hours -Monitor electrolytes Elevated alcohol level, concerns for alcohol withdrawal, history of alcoholism -[facility] protocol -Banana bag Currently in ICU on a 96-hour hold for Attestations Medical Necessity Statement*: Patient requires hospitalization, for suicide attempt, intentional drug overdose Coding Level of Care Code Acute Code for Chg Fwd Diagnoses Intentional overdose T50.902A Suicide attempt T14.91XA Alcohol abuse with withdrawal F10.139
[2022-06-19] MEDS: pantoprazole 40 mg SDV IVP (22:45)
[2022-06-19] MEDS: enoxaparin 40 mg/0.4 mL Syringe SUBCUT (22:45)
[2022-06-19] MEDS: sodium chloride 0.9% 1,000 ML 75 ML IV (22:46)
[2022-06-19] MEDS: folic acid 1 MG, multivitamin inj 10 ML, thiamine 100 MG in sodium chloride 0.9% 1,000 ML 252.8 MG IV (22:57)
[2022-06-19] MEDS: acetaminophen 325 mg Tablet 650 MG PO (23:00)
--- NOTE | 2022-06-19 23:02 | ECG_ITS ---
[facility] Test Date: 2022-06-19 Pat Name: Xiomara Chavez Department: Room: ICU02 Gender: Female Gas Maker: : 1970 Requested By: Bobby Viveros Order Number: [id number] Brigitte MD: Jake Fagan M.D. Measurements Intervals [place] Rate: 87 P: 69 CT: 200 QRS: 61 QRSD: 80 T: 55 QT: 347 QTc: 418 Interpretive Statements SINUS RHYTHM POSSIBLE LEFT ATRIAL ENLARGEMENT [-0.1mV P-WAVE IN V1/V2] LOW QRS VOLTAGE IN PRECORDIAL LEADS [QRS DEFLECTION < 1.0 mV IN CHEST LEADS] SEPTAL MYOCARDIAL INFARCTION , OF INDETERMINATE AGE [40+ ms Q WAVE IN V1/V2] Compared to ECG 06/19/2022 17:08:48 Sinus tachycardia no longer present Ventricular premature complex(es) no longer present Myocardial infarct finding still present Electronically Signed On 06-20-2022 9:48:19 CDT by Jake Fagan M.D. [email or web address] On/store/[id number]
[2022-06-19 23:38] LABS: HIV 1 & 2 Antibody Non-Reactive (Non-Reactiv); HIV 1 & 2 Antigen Non-Reactive (Non-Reactiv)
[2022-06-19 23:52] LABS: Hepatitis A Antibody IgM Non-Reactive (Nonreactive); Hepatitis B Core IgM Non-Reactive (Nonreactive); Hepatitis B Surface Antigen Equivocal (Nonreactive); Hepatitis C Virus Antibody Reactive (Nonreactive)
[2022-06-20] VITALS (156 sets, daily range): BP systolic 115–163; BP diastolic 80–116; PULSE 74–117; RESP 15–36; TEMP 36.4–36.7; O2SAT 86–100; BMI 33.0
[2022-06-20 05:26] LABS: Basophils % 0.5 %; Eosinophils # 0.1 10^3/uL (0.0-0.8); Eosinophils % 2.2 %; Hematocrit 39.2 % (37.0-47.0); Hemoglobin 12.6 g/dL (11.5-15.3); Lymphocytes % 50.9 %; Mean Corpuscular HGB Conc 32.1 g/dL (30.0-36.0); Mean Corpuscular Volume 93.3 fl (81-99); Mean Platelet Volume 9.3 fL (7.4-10.4); Monocytes # 0.4 10^3/uL (0.2-0.9); Monocytes % 6.5 %; Neutrophils # 2.31 10^3/uL (1.8-7.7); Neutrophils % 39.7 %; Nucleated Red Blood Cells % 0 %; Platelet Count 241 10^3/cmm (130-400); Red Cell Distribution Width 14.9 % (12.1-15.1); White Blood Count 5.8 10^3/uL (4.0-10.0)
[2022-06-20 06:09] LABS: Estmated Average Glucose 103; Hemoglobin A1C 5.2 % (4.0-6.0)
[2022-06-20 07:53] LABS: Alanine Aminotransferase 14 U/L (0-33); Albumin Level 3.3 g/dL (3.5-5.2); Alkaline Phosphatase 65 U/L (35-105); Anion Gap 9.6 (5-19); Aspartate Amino Transferase 15 U/L (0-32); Blood Urea Nitrogen 15 mg/dL (6-20); Calcium 7.9 mg/dL (8.5-10.5); Carbon Dioxide 25 mmol/L (22-29); Chloride 101 mmol/L (98-107); Chol HDL Ratio 4.67 mg/dL (0.0-4.40); Cholesterol 182 mg/dL (0-200); Globulin 2.2 g/dL (1.3-4.6); Glomerular Filtration Rate 75.6 mL/min (90-130); Glucose 116 mg/dL (65-115); HDL Cholesterol 39 mg/dL (60-100); LDL Cholesterol Calculated 74 mg/dL (50-129); Magnesium 1.7 mg/dL (1.7-2.3); NT Pro B Type Natriuretic Pept 824 pg/mL (0-125); Osmolality Calculated 276 mOsm/kg (285-295); Phosphorus 3.6 mg/dL (2.5-4.5); Potassium 3.6 mmol/L (3.5-5.1); Sodium 132 mmol/L (136-145); Thyroid Stimulating Hormone 2.22 uIU/mL (0.27-4.20); Total Bilirubin 0.2 mg/dL (0.15-1.2); Total Protein 5.5 g/dL (6.6-8.7); Triglycerides 347 mg/dL (0-150)
[2022-06-20] MEDS: thiamine 100 mg Tablet PO (08:20)
[2022-06-20] MEDS: folic acid 1 mg Tablet PO (08:20)
[2022-06-20] MEDS: multivitamin therapeutic Tablet 1 TAB PO (08:37)
--- NOTE | 2022-06-20 09:26 | PC.NURSE ---
Poison Control Spoke with Lorenza from [facility] Poison Control, updated her on patient treatment plan and current condition. Answered all questions at this time. Lorenza told this nurse she was closing the case on her end but to call back with any questions or concerns.
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
--- NOTE | 2022-06-20 11:42 | ECG_ITS ---
[facility] Test Date: 2022-06-20 Pat Name: Xiomara Chavez Department: Room: ICU02 Gender: Female Director Financial Systems: : 1970 Requested By: John Paul Duarte Order Number: [id number] Reading MD: Jake Fagan M.D. Measurements Intervals [place] Rate: 77 P: 62 [place]: 168 QRS: 60 QRSD: 80 T: 51 QT: 378 QTc: 429 Interpretive Statements SINUS RHYTHM LOW QRS VOLTAGE IN PRECORDIAL LEADS [QRS DEFLECTION < 1.0 mV IN CHEST LEADS] POSSIBLE RIGHT VENTRICULAR CONDUCTION DELAY [RSR (QR) IN V1/V2] SEPTAL MYOCARDIAL INFARCTION , OF INDETERMINATE AGE [40+ ms Q WAVE IN V1/V2] Compared to ECG 06/19/2022 23:02:48 No significant changes Electronically Signed On 06-21-2022 14:29:48 CDT by Jake Fagan M.D. [email or web address].PredPolThe Fan Machinewilson health.JumpCam/store/OM/[id number]
--- NOTE | 2022-06-20 12:30 | PC.NURSE ---
Transfer Note Patient transferred to NPU from ICU via wheelchair. Handoff report given to Corrine. Patient oriented to environment and equipment. Covering service notified. Orders reviewed and will continue to monitor. Patient alert/oriented x4 on room air upon transfer. Right forearm IV removed upon transfer, catheter tip intact. All patient belongings transferred with patient to NPU. Patient denies hallucinations, SI, and pain at this time.
[2022-06-20] MEDS: lisinopril 10 mg Tablet PO (12:46)
--- NOTE | 2022-06-20 13:43 | PM.PN ---
Subjective Subjective: Admitted overnight. H&P and labs appreciated. Examination patient sitting up in bed having her food. Awake and alert. Denies any nausea, vomiting, headache, dizziness. Has remained hemodynamically stable and afebrile. Blood pressure slightly elevated has not received her home dose of lisinopril. QTc appreciated. Remains on room air. Vitals/I&O/Wt Last Vital Signs Temp 97.5 F L 06/20/22 12:55 Pulse 79 06/20/22 12:55 Resp 18 06/20/22 12:55 BP 163/109 06/20/22 12:55 Pulse Ox 96 06/20/22 12:55 O2 Del Method Room Air 06/20/22 08:20 06/19/22 06/20/22 06/20/22 22:59 06:59 14:59 Intake Total 1000 / 1000 1311.2 / 2311.2 360 / 360 Output Total 0 / 0 1100 / 1100 Balance 1000 / 1000 211.2 / 1211.2 360 / 360 Weight last 48 hrs Weight 92.986 kg Weight 92.986 kg Weight 95.254 kg Physical Exam Const: COMMON NORMALS: no acute distress and patient oriented x3 Eye: COMMON NORMALS: Equal, round and reactive pupils present and EOMs intact bilaterally PUPIL: Yes Equal, round and reactive pupils present Neck/C-Spine: COMMON NORMALS: full ROM and no lymphadenopathy Lymph: LYMPHATIC: no lymphadenopathy noted Resp: COMMON NORMALS: normal respiratory effort, No retractions, No use of accessory muscles and clear to auscultation bilaterally AUSCULTATION: clear to auscultation bilaterally Cardio: COMMON NORMALS: regular rate, regular rhythm, S1 normal heart sound present and S2 normal heart sound present RATE: regular rate RHYTHM: regular rhythm HEART SOUNDS: S1 normal heart sound present and S2 normal heart sound present GI: COMMON NORMALS: Normal to inspection, nondistended, normoactive bowel sounds present, Soft to palpation and non-tender PALPATION: Yes Soft to palpation Extremity: COMMON NORMALS: no pedal edema Neuro: COMMON NORMALS: patient oriented x3, CN's II-XII intact bilaterally, moves all extremities and no focal motor deficits Psych: COMMON NORMALS: mental status grossly normal Data 06/20/22 05:07 06/20/22 05:07 A&P Assessment and plan (1) Intentional overdose: Overdose of gabapentin. QTc stable. Check EKG for QTc. After that can monitor QTc every 8 hours for 1 day. Hold off on gabapentin and sertraline for now. (2) Suicide attempt: Psych consultation. (3) Alcohol abuse with withdrawal: Post banana bag. CIWA protocol. Repeat folic acid and vitamin B12. (4) Major depressive disorder, recurrent severe without psychotic features: (5) Essential hypertension: (6) Hepatitis C: Plan Patient stable to be transferred to Neuropsych Unit with advised to check EKG every 8 hours for QTc. Please call if QTc higher than 500. Continue with home dose of lisinopril. Goal blood pressure less than 140/90 mmHg. Care discussed in detail with patient's RN at bedside. Attestations Medical Necessity Statement*: Requires further hospitalization for 96-hour hold in setting of suicide attempt with gabapentin overdose while she has been transferred to Neuropsych Unit Diagnoses Intentional overdose T50.902A Suicide attempt T14.91XA Alcohol abuse with withdrawal F10.139 Major depressive disorder, recurrent severe without psychotic features F33.2 Essential hypertension I10 Hepatitis C B19.20
[2022-06-20] MEDS: hyDROXYzine 25 mg Capsule 50 MG PO ×2 (14:53→20:43)
[2022-06-20] MEDS: acetaminophen 325 mg Tablet 650 MG PO (14:54)
[2022-06-20] MEDS: nicotine 2 mg Gum BUCCAL (16:18)
[2022-06-20] MEDS: OLANZapine 5 mg ODT PO (17:53)
[2022-06-20] MEDS: nicotine 4 mg lozenge MUCOUS MEM ×2 (18:34→20:43)
--- NOTE | 2022-06-20 20:38 | ECG_ITS ---
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 Measurements Intervals [place] Rate: 79 P: 49 [place]: 182 QRS: 49 QRSD: 78 T: 46 QT: 355 QTc: 409 Interpretive Statements SINUS RHYTHM Compared to ECG 06/20/2022 11:42:04 Myocardial infarct finding no longer present Electronically Signed On 06-21-2022 14:31:33 CDT by Jake Fagan M.D. [email or web address] regional hospitalEZbuildingEHSuniversity hospitals samaritan medical centerNanoSteel/store/OM/[id number]
[2022-06-21] MEDS: acetaminophen 325 mg Tablet 650 MG PO ×3 (03:00→18:22)
--- NOTE | 2022-06-21 03:29 | ECG_ITS ---
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 Measurements Intervals [place] Rate: 68 P: 73 SC: 207 QRS: 55 QRSD: 85 T: 49 QT: 408 QTc: 434 Interpretive Statements SINUS RHYTHM Compared to ECG 06/20/2022 20:38:40 No significant changes Electronically Signed On 06-21-2022 14:33:30 CDT by Jake Fagna M.D. [email or web address].Abe's Marketnorth mississippi medical centerUpmann'sbarney children's [facility] center.Playdate App/store/OM/[id number]
[2022-06-21 06:00] VITALS: BP 157/94; PULSE 75; RESP 18; TEMP 36.4; O2SAT 98
[2022-06-21] MEDS: hyDROXYzine 25 mg Capsule 50 MG PO ×2 (08:29→16:37)
[2022-06-21] MEDS: pantoprazole DR 40 mg Tablet PO (08:29)
[2022-06-21] MEDS: multivitamin therapeutic Tablet 1 TAB PO (08:29)
[2022-06-21] MEDS: thiamine 100 mg Tablet PO (08:29)
[2022-06-21] MEDS: cyanocobalamin 1,000 mcg Tablet 500 MCG PO (08:29)
[2022-06-21] MEDS: lisinopril 10 mg Tablet PO (08:30)
[2022-06-21] MEDS: folic acid 1 mg Tablet PO (08:30)
[2022-06-21] MEDS: nicotine 4 mg lozenge MUCOUS MEM ×6 (08:32→20:56)
[2022-06-21] MEDS: LORazepam 2 mg Tablet PO ×2 (10:53→20:55)
--- NOTE | 2022-06-21 13:33 | PC.NURSE ---
[facility] Phys[facility] Patient administered ativan 2mg PO due to protocol for scoring 14 on CIWA. Patient endorsed being nauseous without any vomiting, mild perspiration, a headached rated 7/10, moderate anxiety, sensitivity to light and sound.
[2022-06-21 14:00] VITALS: BP 125/80; PULSE 84; RESP 18; TEMP 36.6; O2SAT 97
--- NOTE | 2022-06-21 14:06 | W.PM.NPUPNS ---
Vitals/I&O/Wt Last Vital Signs Temp 97.9 F 06/21/22 14:00 Pulse 84 06/21/22 14:00 Resp 18 06/21/22 14:00 BP 125/80 06/21/22 14:00 Pulse Ox 97 06/21/22 14:00 O2 Del Method Room Air 06/20/22 22:00 Weight last 48 hrs Weight 92.986 kg Weight 92.986 kg Weight 95.254 kg Data NPU 06/20/22 05:07 06/20/22 05:07 A&P Assessment and plan (1) Depression with suicidal ideation: (2) Anxiety: (3) Stress: (4) Major depressive disorder, recurrent severe without psychotic features: (5) Bereavement: (6) Nicotine dependence, cigarettes, uncomplicated: (7) Methamphetamine dependence, episodic: (8) PTSD (post-traumatic stress disorder): (9) Severe alcohol dependence: Plan This is a 52-year-old white female with a long history of depression, anxiety and addiction who presents after an intentional overdose that she acknowledges was a suicide attempt reporting openness to treatment. 1.? Continue current medication.? Except, hold the Neurontin. Consider restarting Zoloft once concern for prolonged QT interval abated 2.? Continue every 15 minute checks for safety. 3.? Encourage individual, group and milieu therapies. 4.? Encourage sober living treatment after discharge at the highest level of care to which she is willing to commit. Involuntary Hold Information 96 Hour Hold: 96 Hour Involuntary Admission: Yes 96 Hour Hold Ending Date: 06/25/22 96 Hour Hold Ending Time: 20:17 Attestations NPU Medical Necessity Statement*: Inpatient hospitalization is medically necessary and the clinically appropriate intervention at this time. We will monitor medication to make changes as indicated. Likely length of stay 2-4 days. Coding Level of Care Code Acute Code for Chg Fwd Diagnoses Depression with suicidal ideation F32.A; R45.851 Anxiety F41.9 Stress F43.9 Major depressive disorder, recurrent severe without psychotic features F33.2 Bereavement Z63.4 Nicotine dependence, cigarettes, uncomplicated F17.210 Methamphetamine dependence, episodic F15.20 PTSD (post-traumatic stress disorder) F43.10 Severe alcohol dependence F10.20
[2022-06-21] MEDS: OLANZapine 5 mg ODT PO (19:23)
--- NOTE | 2022-06-21 19:24 | PC.NURSE ---
Patient requesting medication for anxiety. Patient visibly agitated. Gave patient Zyprexa 5mg per protocol. Encouraged patient to rest.
[2022-06-21 20:49] VITALS: BP 146/92; PULSE 85; RESP 18; TEMP 36.8; O2SAT 97
[2022-06-21] MEDS: trazodone 50 mg Tablet PO (20:55)
[2022-06-22] MEDS: LORazepam 2 mg Tablet PO ×2 (03:27→20:06)
[2022-06-22] MEDS: acetaminophen 325 mg Tablet 650 MG PO ×2 (03:28→11:31)
[2022-06-22] MEDS: nicotine 4 mg lozenge MUCOUS MEM ×5 (03:28→20:06)
[2022-06-22 06:00] VITALS: BP 124/82; PULSE 77; RESP 18; O2SAT 95
[2022-06-22] MEDS: pantoprazole DR 40 mg Tablet PO (08:35)
[2022-06-22] MEDS: lisinopril 10 mg Tablet PO (08:35)
[2022-06-22] MEDS: cyanocobalamin 1,000 mcg Tablet 500 MCG PO (08:35)
[2022-06-22] MEDS: thiamine 100 mg Tablet PO (08:36)
[2022-06-22] MEDS: folic acid 1 mg Tablet PO (08:36)
[2022-06-22] MEDS: multivitamin therapeutic Tablet 1 TAB PO (08:36)
[2022-06-22] MEDS: hyDROXYzine 25 mg Capsule 50 MG PO ×2 (08:40→18:39)
[2022-06-22] MEDS: OLANZapine 5 mg ODT PO (11:34)
[2022-06-22 14:00] VITALS: BP 112/68; PULSE 86; RESP 18; TEMP 36.6; O2SAT 97
--- NOTE | 2022-06-22 17:46 | W.PM.NPUPNS ---
Subjective NPU Subjective: Patient attended today reporting that she was doing okay but anxious missing her Zoloft. We discussed the hold on her medication secondary to her prolonged QT. We discussed obtaining an EKG to document her QT interval with likely subsequent EKG prior to restarting the medication. She was agreeable to that and reported that she did complete paperwork with the social work team to bring resources to her outpatient treatment. Mental Status Exam MSE Comments: This is an obese white female in hospital scrubs with improving grooming and eye contact. No abnormal movements. Cooperative with exam in no acute distress. Speech was normal rate and volume. Mood described as anxious, affect congruent. Thought process organized. Thought contact: patient denies suicidal or homicidal ideation, there were no delusions reported or noted, patient denied auditory or visual hallucinations. Attention and concentration appeared intact and memory appeared reliable but none were formally tested. Patient is alert and oriented times three. Insight and judgment appear fair and impulse control appears impaired, but improving. Vitals/I&O/Wt Last Vital Signs Temp 98.0 F 06/22/22 22:00 Pulse 94 06/22/22 22:00 Resp 17 06/22/22 22:00 BP 135/89 06/22/22 22:00 Pulse Ox 97 06/22/22 22:00 O2 Del Method Room Air 06/22/22 22:00 Data NPU 06/20/22 05:07 06/20/22 05:07 A&P Assessment and plan (1) Depression with suicidal ideation: (2) Anxiety: (3) Stress: (4) Major depressive disorder, recurrent severe without psychotic features: (5) Bereavement: (6) Nicotine dependence, cigarettes, uncomplicated: (7) Methamphetamine dependence, episodic: (8) PTSD (post-traumatic stress disorder): (9) Severe alcohol dependence: Plan This is a 52-year-old white female with a long history of depression, anxiety and addiction who presents after an intentional overdose that she acknowledges was a suicide attempt reporting openness to treatment. 1.? Continue current medication.? Except, hold the Neurontin. Consider restarting Zoloft once concern for prolonged QT interval abated. We will repeat EKG tomorrow and restart medication. 2.? Continue every 15 minute checks for safety. 3.? Encourage individual, group and milieu therapies. 4.? Encourage sober living treatment after discharge at the highest level of care to which she is willing to commit. Involuntary Hold Information 96 Hour Hold: 96 Hour Involuntary Admission: Yes 96 Hour Hold Ending Date: 06/25/22 96 Hour Hold Ending Time: 20:17 Attestations NPU Medical Necessity Statement*: Inpatient hospitalization is medically necessary and the clinically appropriate intervention at this time. We will monitor medication to make changes as indicated. Likely length of stay 1-3 days. Coding Level of Care Code Acute Code for Chg Fwd Diagnoses Depression with suicidal ideation F32.A; R45.851 Anxiety F41.9 Stress F43.9 Major depressive disorder, recurrent severe without psychotic features F33.2 Bereavement Z63.4 Nicotine dependence, cigarettes, uncomplicated F17.210 Methamphetamine dependence, episodic F15.20 PTSD (post-traumatic stress disorder) F43.10 Severe alcohol dependence F10.20
--- NOTE | 2022-06-22 17:47 | ECG_ITS ---
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 Measurements Intervals [place] Rate: 84 P: 46 ND: 166 QRS: 59 QRSD: 82 T: 51 QT: 357 QTc: 424 Interpretive Statements SINUS RHYTHM LOW QRS VOLTAGE IN PRECORDIAL LEADS [QRS DEFLECTION < 1.0 mV IN CHEST LEADS] Compared to ECG 06/21/2022 03:29:55 Low QRS voltage now present Electronically Signed On 06-22-2022 20:42:25 CDT by Nikko Kyle M.D. [email or web address] Researchfield [facility] hospital[facility] [place].[email or web address]/OM/[id number]
--- NOTE | 2022-06-22 18:39 | PC.NURSE ---
PRN VISTARIL 50 MG GIVEN PO PER PT REQUEST OF SOMETHING MORE FOR ANXIETY
[2022-06-22] MEDS: trazodone 50 mg Tablet PO (20:06)
[2022-06-22 22:00] VITALS: BP 135/89; PULSE 94; RESP 17; TEMP 36.7; O2SAT 97
[2022-06-22 23:20] LABS: HEP C RNA Viral Load Quant <1.18 NOT DETECTED Log IU/mL (NOT DETECTED); HEP C RNA Viral Load Quant <15 NOT DETECTED IU/mL (NOT DETECTED)
[2022-06-23] MEDS: acetaminophen 325 mg Tablet 650 MG PO (03:35)
[2022-06-23 06:00] VITALS: BP 130/92; PULSE 98; RESP 17; TEMP 36.7; O2SAT 98
--- NOTE | 2022-06-23 10:24 | ECG_ITS ---
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 Measurements Intervals [place] Rate: 74 P: 66 VA: 190 QRS: 42 QRSD: 77 T: 43 QT: 381 QTc: 425 Interpretive Statements SINUS RHYTHM POSSIBLE LEFT ATRIAL ENLARGEMENT [-0.1mV P-WAVE IN V1/V2] LOW QRS VOLTAGE IN PRECORDIAL LEADS [QRS DEFLECTION < 1.0 mV IN CHEST LEADS] Compared to ECG 06/22/2022 18:10:37 No significant changes Electronically Signed On 06-23-2022 11:02:23 CDT by Nikko Kyle M.D. [id number]
[2022-06-23] MEDS: multivitamin therapeutic Tablet 1 TAB PO (10:39)
[2022-06-23] MEDS: cyanocobalamin 1,000 mcg Tablet 500 MCG PO (10:39)
[2022-06-23] MEDS: thiamine 100 mg Tablet PO (10:40)
[2022-06-23] MEDS: folic acid 1 mg Tablet PO (10:40)
[2022-06-23] MEDS: pantoprazole DR 40 mg Tablet PO (10:40)
[2022-06-23] MEDS: lisinopril 10 mg Tablet PO (10:40)
[2022-06-23] MEDS: nicotine 4 mg lozenge MUCOUS MEM ×4 (12:03→17:26)
[2022-06-23] MEDS: sertraline 100 mg Tablet PO (12:48)
[2022-06-23] MEDS: hyDROXYzine 25 mg Capsule 50 MG PO (13:08)
[2022-06-23 14:00] VITALS: BP 129/83; PULSE 95; RESP 18; O2SAT 94
[2022-06-23] MEDS: LORazepam 2 mg Tablet PO (15:28)
--- NOTE | 2022-06-23 17:25 | W.PM.NPUPNS ---
Subjective NPU Subjective: Patient presented today reporting that she is doing fine. She has been working with the social work team for options and discharge. She has been working to get assistance at home as well as to find some better residential situations. She denies any issues with the initiation of her Zoloft. We discussed rechecking an EKG in the morning and then also planning for discharge tomorrow. Mental Status Exam MSE Comments: This is an obese white female in hospital scrubs with improving grooming and eye contact. No abnormal movements. Cooperative with exam in no acute distress. Speech was normal rate and volume. Mood described as anxious but better, affect congruent. Thought process organized. Thought contact: patient denies suicidal or homicidal ideation, there were no delusions reported or noted, patient denied auditory or visual hallucinations. Attention and concentration appeared intact and memory appeared reliable but none were formally tested. Patient is alert and oriented times three. Insight and judgment appear fair and impulse control appears impaired, but improving. Vitals/I&O/Wt Last Vital Signs Temp 98.0 F 06/23/22 06:00 Pulse 95 06/23/22 14:00 Resp 18 06/23/22 14:00 BP 129/83 06/23/22 14:00 Pulse Ox 94 06/23/22 14:00 O2 Del Method Room Air 06/23/22 07:57 Data NPU 06/20/22 05:07 06/20/22 05:07 A&P Assessment and plan (1) Depression with suicidal ideation: (2) Anxiety: (3) Stress: (4) Major depressive disorder, recurrent severe without psychotic features: (5) Bereavement: (6) Nicotine dependence, cigarettes, uncomplicated: (7) Methamphetamine dependence, episodic: (8) PTSD (post-traumatic stress disorder): (9) Severe alcohol dependence: Plan This is a 52-year-old white female with a long history of depression, anxiety and addiction who presents after an intentional overdose that she acknowledges was a suicide attempt reporting openness to treatment. 1.? Continue current medication.? Except, hold the Neurontin. Restart Zoloft 100 mg p.o. every morning with the plan of discharging on 150 mg. Once concern for prolonged QT interval abated. We will repeat EKG tomorrow and restart medication. 2.? Continue every 15 minute checks for safety. 3.? Encourage individual, group and milieu therapies. 4.? Encourage sober living treatment after discharge at the highest level of care to which she is willing to commit. Involuntary Hold Information 96 Hour Hold: 96 Hour Involuntary Admission: Yes 96 Hour Hold Ending Date: 06/25/22 96 Hour Hold Ending Time: 20:17 Attestations NPU Medical Necessity Statement*: Inpatient hospitalization is medically necessary and the clinically appropriate intervention at this time. We will monitor medication to make changes as indicated. Tentative plan for discharge tomorrow. Coding Level of Care Code Acute Code for Chg Fwd Diagnoses Depression with suicidal ideation F32.A; R45.851 Anxiety F41.9 Stress F43.9 Major depressive disorder, recurrent severe without psychotic features F33.2 Bereavement Z63.4 Nicotine dependence, cigarettes, uncomplicated F17.210 Methamphetamine dependence, episodic F15.20 PTSD (post-traumatic stress disorder) F43.10 Severe alcohol dependence F10.20
[2022-06-23 22:00] VITALS: BP 117/81; PULSE 94; RESP 16; TEMP 37; O2SAT 92
[2022-06-24 06:00] VITALS: RESP 17
[2022-06-24] MEDS: nicotine 4 mg lozenge MUCOUS MEM ×7 (07:34→20:17)
[2022-06-24] MEDS: sertraline 100 mg Tablet PO (08:06)
[2022-06-24] MEDS: cyanocobalamin 1,000 mcg Tablet 500 MCG PO (08:06)
[2022-06-24] MEDS: multivitamin therapeutic Tablet 1 TAB PO (08:07)
[2022-06-24] MEDS: folic acid 1 mg Tablet PO (08:07)
[2022-06-24] MEDS: pantoprazole DR 40 mg Tablet PO (08:07)
[2022-06-24] MEDS: thiamine 100 mg Tablet PO (08:07)
[2022-06-24] MEDS: lisinopril 10 mg Tablet PO (08:07)
[2022-06-24] MEDS: hyDROXYzine 25 mg Capsule 50 MG PO ×3 (09:18→20:18)
--- NOTE | 2022-06-24 09:20 | PC.NURSE ---
Patient requesting medication for anxiety, caused by fellow patients. Patient given Vistaril PO. Encouraged to return to room and take some breathing exercises.
[2022-06-24] MEDS: acetaminophen 325 mg Tablet 650 MG PO ×2 (10:49→16:44)
[2022-06-24] MEDS: ondansetron 4 MG Tablet PO ×2 (10:49→16:44)
--- NOTE | 2022-06-24 11:02 | ECG_ITS ---
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 Measurements Intervals [place] Rate: 74 P: 64 GA: 180 QRS: 40 QRSD: 95 T: 31 QT: 377 QTc: 420 Interpretive Statements SINUS RHYTHM Compared to ECG 06/23/2022 10:57:58 No significant changes Electronically Signed On 06-24-2022 16:17:22 CDT by Jake Fagan M.D. [email or web address] [facility] centerMod[facility].[employer]/store/OM/[id number]
[2022-06-24 14:00] VITALS: BP 108/73; PULSE 88; RESP 16; TEMP 36.8; O2SAT 97
[2022-06-24] MEDS: OLANZapine 5 mg ODT PO (16:45)
--- NOTE | 2022-06-24 16:55 | W.PM.NPUPNS ---
Subjective NPU Subjective: Patient presented today reporting that she is tolerating the resumption of her medication without incident. We discussed increasing her Zoloft to 150 mg every morning tomorrow if her QT interval returns in normal range. We also discussed the plan for discharge tomorrow as she ended social work team have mapped out a reasonable strategy for her to possibly get out of her current condition with appropriate resources and follow-up. Mental Status Exam MSE Comments: This is an obese white female in hospital scrubs with improving grooming and eye contact. No abnormal movements. Cooperative with exam in no acute distress. Speech was normal rate and volume. Mood described as a little better, affect congruent. Thought process organized. Thought contact: patient denies suicidal or homicidal ideation, there were no delusions reported or noted, patient denied auditory or visual hallucinations. Attention and concentration appeared intact and memory appeared reliable but none were formally tested. Patient is alert and oriented times three. Insight and judgment appear fair and impulse control appears impaired, but improving. Vitals/I&O/Wt Last Vital Signs Temp 98.0 F 06/24/22 20:07 Pulse 84 06/24/22 20:07 Resp 18 06/24/22 20:07 BP 111/76 06/24/22 20:07 Pulse Ox 96 06/24/22 20:07 O2 Del Method Room Air 06/24/22 20:07 Data NPU 06/20/22 05:07 06/20/22 05:07 A&P Assessment and plan (1) Depression with suicidal ideation: (2) Anxiety: (3) Stress: (4) Major depressive disorder, recurrent severe without psychotic features: (5) Bereavement: (6) Nicotine dependence, cigarettes, uncomplicated: (7) Methamphetamine dependence, episodic: (8) PTSD (post-traumatic stress disorder): (9) Severe alcohol dependence: Plan This is a 52-year-old white female with a long history of depression, anxiety and addiction who presents after an intentional overdose that she acknowledges was a suicide attempt reporting openness to treatment. 1.? Continue current medication.? Except, hold the Neurontin. Restart Zoloft 100 mg p.o. every morning with the plan of discharging on 150 mg. Once concern for prolonged QT interval abated. We will repeat EKG tomorrow and restart medication. 2.? Continue every 15 minute checks for safety. 3.? Encourage individual, group and milieu therapies. 4.? Encourage sober living treatment after discharge at the highest level of care to which she is willing to commit. Involuntary Hold Information 96 Hour Hold: 96 Hour Involuntary Admission: Yes 96 Hour Hold Ending Date: 06/25/22 96 Hour Hold Ending Time: 20:17 Attestations NPU Medical Necessity Statement*: Inpatient hospitalization is medically necessary and the clinically appropriate intervention at this time. We will monitor medication to make changes as indicated. Discharge tomorrow. Coding Level of Care Code Acute Code for Chg Fwd Diagnoses Depression with suicidal ideation F32.A; R45.851 Anxiety F41.9 Stress F43.9 Major depressive disorder, recurrent severe without psychotic features F33.2 Bereavement Z63.4 Nicotine dependence, cigarettes, uncomplicated F17.210 Methamphetamine dependence, episodic F15.20 PTSD (post-traumatic stress disorder) F43.10 Severe alcohol dependence F10.20
[2022-06-24 20:07] VITALS: BP 111/76; PULSE 84; RESP 18; TEMP 36.7; O2SAT 96
[2022-06-24] MEDS: trazodone 50 mg Tablet PO (20:18)
[2022-06-24] MEDS: LORazepam 2 mg Tablet PO (21:34)
[2022-06-25 06:00] VITALS: RESP 16
[2022-06-25] MEDS: nicotine 4 mg lozenge MUCOUS MEM ×2 (07:29→09:35)
[2022-06-25] MEDS: pantoprazole DR 40 mg Tablet PO (08:30)
[2022-06-25] MEDS: cyanocobalamin 1,000 mcg Tablet 500 MCG PO (08:30)
[2022-06-25] MEDS: multivitamin therapeutic Tablet 1 TAB PO (08:30)
[2022-06-25] MEDS: sertraline 100 mg Tablet PO (08:30)
[2022-06-25] MEDS: folic acid 1 mg Tablet PO (08:30)
[2022-06-25] MEDS: thiamine 100 mg Tablet PO (08:30)
[2022-06-25] MEDS: lisinopril 10 mg Tablet PO (08:30)
[2022-06-25] MEDS: hyDROXYzine 25 mg Capsule 50 MG PO (09:13)
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
[2022-06-25 10:47] VITALS: RESP 16
[2022-06-25 10:53] VITALS: BP 111/76; PULSE 84; RESP 16; TEMP 36.6; O2SAT 96
== END 2022-06-25 11:21 | disposition home or self-care (01) | DRG 918 ==
LOC: ER 19:26 → ICU 21:09 → NP 06-20 12:49
PROVIDERS: Emergency Medicine; Admitting Provider Family Medicine; Emergency Provider Emergency Medicine; PCP Family Medicine; Visit Provider Psychiatry & Neurology Psychiatry
DX: T42.6X2A Poisoning by other antiepileptic and sedative-hypnotic drugs, intentional self-harm, initial encounter (principal); F10.239 Alcohol dependence with withdrawal, unspecified; F33.2 Major depressive disorder, recurrent severe without psychotic features; R45.851 Suicidal ideations; F15.20 Other stimulant dependence, uncomplicated; T51.0X2A Toxic effect of ethanol, intentional self-harm, initial encounter; F10.229 Alcohol dependence with intoxication, unspecified; Y90.6 Blood alcohol level of 120-199 mg/100 ml; J44.9 Chronic obstructive pulmonary disease, unspecified; F43.10 Post-traumatic stress disorder, unspecified; F41.9 Anxiety disorder, unspecified; Z63.4 Disappearance and death of family member; E66.01 Morbid (severe) obesity due to excess calories; Z68.33 Body mass index [BMI] 33.0-33.9, adult; F17.210 Nicotine dependence, cigarettes, uncomplicated; B19.20 Unspecified viral hepatitis C without hepatic coma; R94.31 Abnormal electrocardiogram [ECG] [EKG]
CPT/HCPCS: 36415; 36416; 36600; 71045; 80051; 80053; 80061; 80074; 80306; 80307; 81001; 81025; 82330; 82805; 82962; 83036; 83605; 83735; 83880; 84100; 84443; 85025; 85610; 87522; 87806; 93005; 94664; 96360; 96372; 96376; 97150; 97165; 99285; C9113; J1650; J3411; J3490; J7030; Q0162

== ENCOUNTER → 2022-09-07 11:31 | Outpatient (BNVA) | payer MEDICAID, SELFPAY | PROVIDERS: PCP Family Medicine; Visit Provider Nurse Practitioner Psychiatric/Mental Health | DX: Z79.899 Other long term (current) drug therapy (principal) | CPT/HCPCS: 80053; 80307 ==

== ENCOUNTER 2023-03-20 17:42 | Inpatient (IN) | payer MEDICAID, SELFPAY ==
[2023-03-20 17:46] VITALS: BP 165/116; PULSE 105; RESP 16; TEMP 36.5; O2SAT 94; BMI 24.2
--- NOTE | 2023-03-20 18:02 | ED.C_ITS ---
HPI - Psych 2 General: Chief Complaint: Psychiatric Symptoms Stated Complaint: SI/ HI Time Seen by Provider: 03/20/23 17:55 History of Present Illness: 52-year-old female comes in today for co mplaints of suicidal thoughts and homicidal thoughts and is seeking admission to neuropsychiatric unit.. Patient reports that she is just very frustrated right now and is mad at her partner who is watching her dogs but is worried that he may hurt her pet so she wants to hurt him. Patient states that she would shoot herself in the head right now to because she is so upset with herself. Patient has a history of substance abuse disorder. Patient reports depression. Patient endorses alcohol use since the age of 16. Patient has drink 1/5 of hard alcohol today along with methamphetamine and mushroom use. Patient is cooperative but somewhat boisterous. Patient's plan to hurt herself would be to shoot herself in the head but she only has a BB gun available. complaint: suicidal ideation and feels depressed Onset (ago): day(s) Duration: getting worse History of same: Yes Relieving factors: therapy Exacerbating factors: alcohol and drug use Context: recent alcohol abuse, recent drug abuse and not taking psychiatric medications Associated psychiatric symptoms: suicidal ideation and homicidal ideation Associated symptoms: Reports no associated symptoms, homicidal ideation and suicidal ideation Review of Systems 2 General: Reports: 10 or more systems reviewed and unremarkable except in HPI and below Const: Denies: fever(s) ENMT: Denies: throat pain Card: Denies: chest pain Resp: Denies: dyspnea or non-productive cough GI: Denies: nausea, vomiting, diarrhea or constipation : Denies: difficulty voiding Musc: Denies: neck pain or back pain Skin/Breast: Denies: rash Neuro: Denies: headache(s) Psych: Reports: suicidal ideation and homicidal ideation PFS ED 2 PFSH: Medical History (Updated 03/20/23 @ 18:59 by ELIDA Babb) Hepatitis C History of Hep C Treatment Major depressive disorder, recurrent severe without psychotic features Bereavement Nicotine dependence, cigarettes, uncomplicated Methamphetamine dependence, episodic Severe alcohol dependence PTSD (post-traumatic stress disorder) Psychiatric care Obesity Allergic rhinitis COPD (chronic obstructive pulmonary disease) with acute bronchitis Surgical History Hx of appendectomy Social History Smoking and tobacco/nicotine status: current every day tobacco/nicotine user cigarettes Packs smoked per day: 1 Quit status (tobacco/nicotine): considering quitting Alcohol intake: current Alcohol intake frequency: other Alcohol type: beer and hard liquor Substance/Drug Use: never Marital status: Legally Number of children: 4 Physical Exam 2 Const: COMMON NORMALS: alert HENMT: COMMON NORMALS: normocephalic HEAD & SCALP: normocephalic Neck/C-Spine: COMMON NORMALS: full ROM Resp: COMMON NORMALS: clear to auscultation bilaterally AUSCULTATION: clear to auscultation bilaterally Cardio: COMMON NORMALS: regular rate and regular rhythm RATE: regular rate RHYTHM: regular rhythm GI: COMMON NORMALS: Soft to palpation and non-tender PALPATION: Yes Soft to palpation Back/Pelvis: COMMON NORMALS: thoracic and lumbar spine normal to inspection Extremity: COMMON NORMALS: full ROM Neuro: SENSORIUM/ORIENTATION: Yes alert Psych: COMMON NORMALS: cooperative APPEARANCE: Yes unkempt ATTITUDE: Yes engaged ACTIVITY/MOTOR BEHAVIOR: Yes appropriate eye contact SPEECH: Yes excessive MOOD & AFFECT: Yes elevated mood THOUGHT PROCESS: Circumstantial thought process present THOUGHT CONTENT: Yes Suicidality present and Yes Homicidality present ATTENTION/CONCENTRATION: Yes attention grossly intact MEMORY/COGNITION: Yes memory grossly intact INSIGHT: Limited insight present (Psych) JUDGEMENT: Limited judgement present (Psych) Course 2 Vital Signs: Vital signs: Vital Signs Temperature 97.7 F 03/20/23 17:46 Pulse Rate 98 03/20/23 21:42 Respiratory Rate 16 03/20/23 21:42 Blood Pressure 159/99 03/20/23 21:42 Pulse Oximetry 95 03/20/23 21:42 Oxygen Delivery Me thod Room Air 03/20/23 17:46 MDM - Psych Medical Decision Making 52-year-old female comes in with voluntary admission to neuropsychiatric unit for concerns of suicidal and homicidal thoughts. Patient is intoxicated at this time with multiple substances as she reports methamphetamine use this morning, continued alcohol use throughout the day, and the use of mushrooms. On exam patient is coherent and cooperative. Patient's speech is excessive with elevated mood. Patient expresses thoughts of suicide and homicide. Patient reports that there is several people that she would like to hurt but the one right now that is upsetting to her most is her partner because she thinks he will not take care of her pets appropriately. Patient reports that she has had suicidal thoughts that have been lasting days and has been increasing throughout today. Patient wants to be admitted for these thoughts she is having to improve herself. Differential diagnosis includes not limited to substance use disorder, jennifer, major depressive disorder, acute psychosis. Reviewed patient with Dr. Chavez who agreed to admission for concerns of suicidal ideation and substance use disorder. Laboratory values were unremarkable. Patient was positive for methamphetamines. EtOH was 200. Patient was stable and admitted to NPU. Lab Data 03/20/23 18:14 03/20/23 19:55 Laboratory Results WBC 8.14 10^3/uL (3.29-11.43) 03/20/23 18:14 RBC 5.15 10^6/uL (3.85-5.65) 03/20/23 18:14 Hgb 16.00 g/dL (11.27-16.99) 03/20/23 18:14 Hct 48.2 % (36-47) H 03/20/23 18:14 MCV 93.6 fl (85-98) 03/20/23 18:14 MCH 31.1 pg (27-33) 03/20/23 18:14 MCHC 33.2 g/dL (30-55) 03/20/23 18:14 RDW 12.4 % (12.1-15.1) 03/20/23 18:14 Plt Count 305 10^3/cmm (157-399) 03/20/23 18:14 MPV 9.5 fL (7.4-10.4) 03/20/23 18:14 Neut % (Auto) 43.8 % 03/20/23 18:14 Lymph % (Auto) 47.3 % 03/20/23 18:14 [place] % (Auto) 6.1 % 03/20/23 18:14 Eos % (Auto) 2.1 % 03/20/23 18:14 Baso % (Auto) 0.5 % 03/20/23 18:14 Neut # (Auto) 3.56 10^3/uL (1.8-7.7) 03/20/23 18:14 Lymph # (Auto) 3.9 10^3/uL (0.8-4.8) 03/20/23 18:14 [place] # (Auto) 0.5 10^3/uL (0.2-0.9) 03/20/23 18:14 Eos # (Auto) 0.2 10^3/uL (0.0-0.8) 03/20/23 18:14 Baso # (Auto) 0.0 10^3/uL (0.0-0.1) 03/20/23 18:14 Nucleated RBC % (auto) 0 % 03/20/23 18:14 Nucleated RBCs # 0.0 /100WBC 03/20/23 18:14 Sodium Cancelled 03/20/23 18:46 Potassium Cancelled 03/20/23 18:46 Chloride Cancelled 03/20/23 18:46 Carbon Dioxide Cancelled 03/20/23 18:46 Anion Gap Cancelled 03/20/23 18:46 BUN Cancelled 03/20/23 18:46 Creatinine Cancelled 03/20/23 18:46 GFR Calculation Cancelled 03/20/23 18:46 Glucose Cancelled 03/20/23 18:46 Calculated Osmolality Cancelled 03/20/23 18:46 Calcium Cancelled 03/20/23 18:46 Total Bilirubin Cancelled 03/20/23 18:46 AST Cancelled 03/20/23 18:46 ALT Cancelled 03/20/23 18:46 Alkaline Phosphatase Cancelled 03/20/23 18:46 Total Protein Cancelled 03/20/23 18:46 Albumin Cancelled 03/20/23 18:46 Globulin Cancelled 03/20/23 18:46 TSH Cancelled 03/20/23 18:46 HCG, Qual Cancelled 03/20/23 18:16 HCG, Qual Cancelled 03/20/23 18:16 Urine Color Colorless (Yellow) 03/20/23 18:16 Urine Appearance Clear (CLEAR) 03/20/23 18:16 Urine pH 5 (5-7) 03/20/23 18:16 Ur Specific [place] 1.010 (1.005-1.030) 03/20/23 18:16 Urine Protein Neg (Negative) 03/20/23 18:16 Urine Glucose (UA) Norm (Normal) 03/20/23 18:16 Urine Ketones Negative (Negative) 03/20/23 18:16 Urine Blood 3+ (Negative) H 03/20/23 18:16 Urine Nitrate Negative (Negative) 03/20/23 18:16 Urine Bilirubin Neg (Negative) 03/20/23 18:16 Urine Urobilinogen Norm mg/dL (Negative) 03/20/23 18:16 Ur Leukocyte Esterase Negative (Negative) 03/20/23 18:16 Urine RBC 0-4 /hpf (0-2) H 03/20/23 18:16 Urine WBC None /hpf (0-5) 03/20/23 18:16 Ur Squamous Epith Cells Rare /hpf (0-5) 03/20/23 18:16 Amorphous Sediment Not Reportable 03/20/23 18:16 Urine Bacteria Trace /hpf (NONE) 03/20/23 18:16 Salicylates Cancelled 03/20/23 18:46 Urine Opiates Screen Negative ng/mL (Negative) 03/20/23 18:16 Acetaminophen Cancelled 03/20/23 18:46 Ur Barbiturates Screen Negative ng/mL (Negative) 03/20/23 18:16 Ur Phencyclidine Scrn Negative ng/mL (Negative) 03/20/23 18:16 Ur Amphetamines Screen Positive ng/mL (Negative) H 03/20/23 18:16 U Benzodiazepines Scrn Negative ng/mL (Negative) 03/20/23 18:16 Urine Cocaine Screen Negative ng/mL (Negative) 03/20/23 18:16 U Marijuana (THC) Screen Negative ng/mL (Negative) 03/20/23 18:16 Ur Drug Screen Confirm Cancelled 03/20/23 18:16 Ethyl Alcohol Cancelled 03/20/23 18:14 Ethyl Glucuronide Cancelled 03/20/23 18:16 U Ethyl Glucuronide Cnf Cancelled 03/20/23 18:16 Ur Ethyl Sulfate Conf Cancelled 03/20/23 18:16 Confirmation (GC/MS) Cancelled 03/20/23 18:16 No radiology studies performed this visit Discharge Plan Discharge Patient Disposition: Admitted As Inpatient Admit Provider: Deric Chavez Clinical Impression: Suicidal ideation, Substance use disorder Condition: Stable Coding Level of Care Code ED [employer]r for [employer] Mol[employer]
[2023-03-20 18:20] LABS: Basophils % 0.5 %; Eosinophils # 0.2 10^3/uL (0.0-0.8); Eosinophils % 2.1 %; Hematocrit 48.2 % (36-47); Lymphocytes # 3.9 10^3/uL (0.8-4.8); Lymphocytes % 47.3 %; Mean Corpuscular HGB Conc 33.2 g/dL (30-55); Mean Corpuscular Hemoglobin 31.1 pg (27-33); Mean Corpuscular Volume 93.6 fl (85-98); Mean Platelet Volume 9.5 fL (7.4-10.4); Monocytes # 0.5 10^3/uL (0.2-0.9); Monocytes % 6.1 %; Neutrophils # 3.56 10^3/uL (1.8-7.7); Neutrophils % 43.8 %; Nucleated Red Blood Cells % 0 %; Platelet Count 305 10^3/cmm (157-399); Red Blood Count 5.15 10^6/uL (3.85-5.65); Red Cell Distribution Width 12.4 % (12.1-15.1); White Blood Count 8.14 10^3/uL (3.29-11.43)
[2023-03-20 18:33] LABS: Add Urine Microscopic? YES; Bilirubin Urine Neg (Negative); Blood Urine 3+ (Negative); Glucose Urine UA Norm (Normal); Ketones Urine Negative (Negative); Leukocyte Esterase Urine Negative (Negative); Nitrate Urine Negative (Negative); Protein Urine Neg (Negative); Urine Appearance Clear (CLEAR); Urine Color Colorless (Yellow); Urobilinogen Urine Norm (Negative); pH Urine 5 (5-7)
[2023-03-20 18:37] LABS: Add Urine Culture? No; Bacteria Urine TRACE /hpf; RBC Urine 0-4 /hpf (0-2); Squamous Epithelial Cell Urine RARE /hpf (0-5)
[2023-03-20 18:41] LABS: Amphetamines Screen Urine Positive (Negative); Barbiturates Screen Urine Negative (Negative); Benzodiazepines Screen Urine Negative (Negative); Cocaine Screen Urine Negative (Negative); Opiate Screen Urine Negative (Negative); PCP Screen Urine Negative (Negative); THC Screen Urine Negative (Negative)
[2023-03-20 20:18] LABS: Alanine Aminotransferase 17 U/L (0-33); Albumin Level 4.1 g/dL (3.5-5.2); Alcohol Level 201 mg/dL (0-10); Alkaline Phosphatase 89 U/L (35-105); Anion Gap 15.6 (5-19); Aspartate Amino Transferase 15 U/L (0-32); Blood Urea Nitrogen 24 mg/dL (6-20); Calcium 9.1 mg/dL (8.5-10.5); Carbon Dioxide 24 mmol/L (22-29); Chloride 103 mmol/L (98-107); Creatinine Clr Calc Pharmacy 54.9825; Globulin 3.4 g/dL (1.3-4.6); Glomerular Filtration Rate 47.4 mL/min (90-130); Glucose 112 mg/dL (65-115); Osmolality Calculated 293 mOsm/kg (285-295); Potassium 3.6 mmol/L (3.5-5.1); Sodium 139 mmol/L (136-145); Total Bilirubin 0.4 mg/dL (0.15-1.2); Total Protein 7.5 g/dL (6.6-8.7)
[2023-03-20 20:20] LABS: Acetaminophen < 5.0 ug/mL (10-30); Salicylate < 0.3 mg/dL (3-10)
[2023-03-20] MEDS: nicotine 21 mg Patch 1 PATCH TRANSDERMA (20:23)
--- NOTE | 2023-03-20 20:30 | PC.NURSE ---
Pt served with copy of 96 Hour Hold by [facility] [employer].
[2023-03-20 20:38] LABS: Thyroid Stimulating Hormone 1.97 uIU/mL (0.27-4.20)
[2023-03-20 21:42] VITALS: BP 159/99; PULSE 98; RESP 16; O2SAT 95
[2023-03-20 21:44] VITALS: BP 111/80; PULSE 94; RESP 20; TEMP 36.4; O2SAT 98
[2023-03-20 21:58] VITALS: BP 111/80; PULSE 94; RESP 20; TEMP 36.4; O2SAT 98
[2023-03-20] MEDS: trazodone 50 mg Tablet PO (23:16)
[2023-03-21] MEDS: trazodone 50 mg Tablet PO (00:09)
[2023-03-21] MEDS: hyDROXYzine 25 mg Capsule 50 MG PO (05:17)
[2023-03-21 06:00] VITALS: BP 146/100; PULSE 101; RESP 20; TEMP 36.6; O2SAT 96
[2023-03-21] MEDS: multivitamin therapeutic Tablet 1 TAB PO (08:12)
[2023-03-21] MEDS: folic acid 1 mg Tablet PO (08:12)
[2023-03-21] MEDS: thiamine 100 mg Tablet PO (08:13)
[2023-03-21] MEDS: LORazepam 2 mg Tablet PO (08:13)
[2023-03-21] MEDS: flu vacc pf 2023-24 (6 mos+) 60 MCG IM (08:19)
[2023-03-21 14:00] VITALS: BP 112/73; PULSE 84; RESP 13; O2SAT 98
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
[2023-03-21] MEDS: ARIPiprazole 10 mg Tablet 5 MG PO (19:41)
[2023-03-21 20:09] VITALS: BP 109/72; PULSE 83; RESP 16; TEMP 36.3; O2SAT 96
[2023-03-22] MEDS: acetaminophen 325 mg Tablet 650 MG PO (03:46)
[2023-03-22 06:00] VITALS: BP 144/97; PULSE 80; RESP 18; TEMP 36.3; O2SAT 97
[2023-03-22] MEDS: ibuprofen 600 mg Tablet PO (07:48)
[2023-03-22] MEDS: folic acid 1 mg Tablet PO (08:52)
[2023-03-22] MEDS: nicotine 21 mg Patch 1 PATCH TRANSDERMA (08:52)
[2023-03-22] MEDS: thiamine 100 mg Tablet PO (08:52)
[2023-03-22] MEDS: multivitamin therapeutic Tablet 1 TAB PO (08:52)
[2023-03-22] MEDS: ARIPiprazole 10 mg Tablet 5 MG PO (08:53)
[2023-03-22] MEDS: escitalopram 10 mg Tablet PO (08:53)
[2023-03-22 14:00] VITALS: BP 113/74; PULSE 89; RESP 16; TEMP 36.6; O2SAT 94
--- NOTE | 2023-03-22 15:18 | W.PM.NPUPNS ---
Subjective NPU Subjective: 52-year-old female positive for methamphetamine and alcohol admitted with suicidal ideation and worsening depression. Patient had continued to report that she was hearing voices. She reported that she needed help for managing her chronic alcohol use. She had reported that she had used methamphetamine for years. She reported continued use despite efforts to discontinue. She had stated that she is struggled with a lack of motivation. She continued to report feeling depressed. She reported no side effects from her Lexapro at this time. She had reported that she would be interested in attending the [facility] for substance abuse treatment as she had stated that she was homeless at the time. Mental Status Exam MSE Comments: This is an obese white female in a hospital gown with poor hygiene and poor eye contact. No abnormal movements except for severe psychomotor retardation. She was alert and oriented to person place time and situation. She was cooperative with exam in mild to moderate distress. Speech was normal in rate, rhythm, and volume. Mood described as depressed, affect was subdued. Thought process was linear, logical and organized. Thought contact: patient denies suicidal or homicidal ideation, there were no delusions reported or noted, patient endorsed auditory hallucinations today and denies any visual hallucinations.She did appear to be responding to internal stimuli. Attention and concentration appeared intact and memory appeared reliable but none were formally tested. Insight was limited and judgment appear poor and impulse control appears impaired. Vitals/I&O/Wt Last Vital Signs Temp 97.9 F 03/22/23 14:00 Pulse 89 03/22/23 14:00 Resp 16 03/22/23 14:00 BP 113/74 03/22/23 14:00 Pulse Ox 94 03/22/23 14:00 O2 Del Method Room Air 03/22/23 14:00 Weight last 48 hrs Weight 68.039 kg Data NPU 03/20/23 18:14 03/20/23 19:55 A&P Assessment and plan (1) Psychosis: (2) Depressed mood: (3) Severe alcohol dependence: (4) Methamphetamine dependence, episodic: (5) PTSD (post-traumatic stress disorder): Plan This is a 52-year-old white female with a long history of depression, anxiety and polysubstance abuse who presents with suicidal and homicidal ideation and auditory hallucinations currently on no medication and not receiving services. 1.? Continue Lexapro 10mg to target depression, and abilify 5mg to target psychotic symptoms likely secondary from methamphetamine abuse. Naltrexone started at 50mg orally with plan to begin vivitrol IM to target chronic alcohol use. Referral for rehabilitation facilities. [facility] for substance abuse treatment. 2.? Continue every 15 minute checks for safety. 3.? Encourage individual, group and milieu therapies. 4.? Encourage sober living treatment after discharge at the highest level of care to which she is willing to commit. Involuntary Hold Information 96 Hour Hold: 96 Hour Involuntary Admission: Yes 96 Hour Hold Ending Date: 06/25/22 96 Hour Hold Ending Time: 20:17 Attestations NPU Medical Necessity Statement*: Inpatient hospitalization is medically necessary and the clinically appropriate intervention at this time. We will monitor medication to make changes as indicated. Patient will be in the hospital for over two midnights. The patient's likely length of stay is 3-5 days. Coding Level of Care Code Acute Code for [facility] Fwd Diagnoses Psychosis F29 Depressed mood R45.89 Severe alcohol dependence F10.20 Methamphetamine dependence, episodic F15.20 PTSD (post-traumatic stress disorder) F43.10
[2023-03-22] MEDS: naltrexone hcl 50 mg Tablet PO (18:25)
[2023-03-22 20:01] VITALS: BP 116/74; PULSE 78; RESP 16; O2SAT 96
[2023-03-23] MEDS: trazodone 50 mg Tablet PO ×2 (00:55→22:10)
[2023-03-23 06:00] VITALS: RESP 16
[2023-03-23] MEDS: ARIPiprazole 10 mg Tablet 5 MG PO (08:36)
[2023-03-23] MEDS: nicotine 21 mg Patch 1 PATCH TRANSDERMA (08:36)
[2023-03-23] MEDS: naltrexone hcl 50 mg Tablet PO (08:36)
[2023-03-23] MEDS: folic acid 1 mg Tablet PO (08:36)
[2023-03-23] MEDS: escitalopram 10 mg Tablet PO (08:36)
[2023-03-23] MEDS: thiamine 100 mg Tablet PO (08:36)
[2023-03-23] MEDS: multivitamin therapeutic Tablet 1 TAB PO (08:36)
[2023-03-23 14:00] VITALS: BP 132/87; PULSE 82; RESP 18; TEMP 36.6; O2SAT 95
--- NOTE | 2023-03-23 15:18 | P.NPUPN_ITS ---
Subjective NPU 2 Subjective: 52-year-old female positive for methamph etamine and alcohol admitted with suicidal ideation and worsening depression. the patient continued to endorse auditory hallucinations. She had reported that she continued to feel depressed. She was isolative on the milieu. She reported that she was wanting to consider the [facility] but was informed that there was a substantial waiting list. She had reported that she might be interested in the [facility] as a form of treatment on a long-term basis for her substance use. Patient had continued to isolate herself on the milieu. Patient had reported low energy. She had reported sleep continuity disruption. She reported continued cravings for alcohol. She reported no side effects of the naltrexone and stated that she would be interested in something to help her with alcohol cravings. The patient had reported a history of IV drug use but states that she was clean from hepatitis C. Mental Status Exam 2 MSE Comments: This is an obese white female in a hospital gown with poor hygiene and poor eye contact. No abnormal movements except for moderate psychomotor retardation. She was alert and oriented to person place time and situation. She was cooperative with exam in mild distress. Speech was normal in rate, rhythm, and volume. Mood described as depressed, affect was subdued. Thought process was linear, logical and organized. Thought contact: patient denies suicidal or homicidal ideation, there were no delusions reported or noted, patient endorsed auditory hallucinations today and denies any visual hallucinations. She did appear to be responding to internal stimuli. Attention and concentration appeared intact and memory appeared reliable but none were formally tested. Insight was limited and judgment appear poor and impulse control appears impaired. Vitals/I&O/Wt Last Vital Signs Temp 97.9 F 03/22/23 14:00 Pulse 78 03/22/23 20:01 Resp 16 03/23/23 06:00 BP 116/74 03/22/23 20:01 Pulse Ox 96 03/22/23 20:01 O2 Del Method Room Air 03/22/23 20:01 Data NPU 03/20/23 18:14 03/20/23 19:55 A&P Assessment and plan (1) Psychosis: (2) Depressed mood: (3) Severe alcohol dependence: (4) Methamphetamine dependence, episodic: (5) PTSD (post-traumatic stress disorder): Plan This is a 52-year-old white female with a long history of depression, anxiety and polysubstance abuse who presents with suicidal and homicidal ideation and auditory hallucinations currently on no medication and not receiving services. 1.? Continue Lexapro 10mg to target depression, and increase abilify to 10mg to target psychotic symptoms likely secondary from methamphetamine abuse. Continue Naltrexone 50mg daily with plan to begin vivitrol IM to target chronic alcohol use. Referral for rehabilitation facilities. Consider [facility] for substance abuse treatment. 2.? Continue every 15 minute checks for safety. 3.? Encourage individual, group and milieu therapies. 4.? Encourage sober living treatment after discharge at the highest level of care to which she is willing to commit. Involuntary Hold Information 2 96 Hour Hold: 96 Hour Involuntary Admission: Yes 96 Hour Hold Ending Date: 06/25/22 96 Hour Hold Ending Time: 20:17 Attestations NPU 2 Medical Necessity Statement*: Inpatient hospitalization is medically necessary and the clinically appropriate intervention at this time. We will monitor medication to make changes as indicated. Patient will be in the hospital for over two midnights. The patient's likely length of stay is 3-5 days. Coding Level of Care Code Acute Code for [facility] Fwd Diagnoses Psychosis F29 Depressed mood R45.89 Severe alcohol dependence F10.20 Methamphetamine dependence, episodic F15.20 PTSD (post-traumatic stress disorder) F43.10
[2023-03-23 20:19] VITALS: BP 122/80; PULSE 71; RESP 16; TEMP 36.9; O2SAT 98
[2023-03-23] MEDS: acetaminophen 325 mg Tablet 650 MG PO (22:10)
[2023-03-24] MEDS: hyDROXYzine 25 mg Capsule 50 MG PO ×3 (01:53→20:09)
[2023-03-24] MEDS: trazodone 50 mg Tablet PO ×3 (01:53→23:17)
[2023-03-24 06:00] VITALS: BP 147/96; PULSE 79; RESP 16; TEMP 36.9; O2SAT 94
[2023-03-24] MEDS: multivitamin therapeutic Tablet 1 TAB PO (08:20)
[2023-03-24] MEDS: thiamine 100 mg Tablet PO (08:20)
[2023-03-24] MEDS: nicotine 21 mg Patch 1 PATCH TRANSDERMA (08:21)
[2023-03-24] MEDS: ARIPiprazole 10 mg Tablet PO (08:21)
[2023-03-24] MEDS: folic acid 1 mg Tablet PO (08:21)
[2023-03-24] MEDS: naltrexone hcl 50 mg Tablet PO (08:21)
[2023-03-24] MEDS: escitalopram 10 mg Tablet PO (08:21)
--- NOTE | 2023-03-24 13:45 | P.NPUPN_ITS ---
Subjective NPU 2 Subjective: Patient presented today reporting that she is doing okay. She endorsed an interest in addressing some of the challenges she has legally and identified a plan to turn herself in to authorities upon discharge. She reports that she would want to be stable on her medications and be on medications at discharge. She denies any side effects of the medications thus far. She reports that her sleep is still not good and we discussed the possibility of increasing her trazodone at night. Mental Status Exam 2 MSE Comments: This is an obese white female in a hospital gown with poor hygiene and poor eye contact. No abnormal movements except for significant psychomotor retardation.. Cooperative with exam in mild to moderate distress. Speech was decreased rate and volume. Mood described as anxious, affect congruent. Thought process organized. Thought contact: patient denies suicidal or homicidal ideation, there were no delusions reported or noted, patient denied auditory or visual hallucinations. Attention and concentration appeared intact and memory appeared reliable but none were formally tested. Patient is alert and oriented times three. Insight and judgment appear limited but improving and impulse control appears impaired, but improving. Vitals/I&O/Wt Last Vital Signs Temp 98.4 F 03/24/23 06:00 Pulse 79 03/24/23 06:00 Resp 16 03/24/23 06:00 BP 147/96 03/24/23 06:00 Pulse Ox 94 03/24/23 06:00 O2 Del Method Room Air 03/24/23 06:00 Data NPU 03/20/23 18:14 03/20/23 19:55 A&P Assessment and plan (1) Psychosis: (2) Depressed mood: (3) Severe alcohol dependence: (4) Methamphetamine dependence, episodic: (5) PTSD (post-traumatic stress disorder): Plan This is a 52-year-old white female with a long history of depression, anxiety and polysubstance abuse who presents with suicidal and homicidal ideation and auditory hallucinations currently on no medication and not receiving services. 1.? Continued Lexapro 10mg to target depression, and increased abilify to 10mg to target psychotic symptoms likely secondary from methamphetamine abuse. Continued Naltrexone 50mg daily with plan to begin vivitrol IM to target chronic alcohol use. Referral for rehabilitation facilities. Consider [facility] for substance abuse treatment. 2.? Continue every 15 minute checks for safety. 3.? Encourage individual, group and milieu therapies. 4.? Encourage sober living treatment after discharge at the highest level of care to which she is willing to commit. Involuntary Hold Information 2 96 Hour Hold: 96 Hour Involuntary Admission: Yes 96 Hour Hold Ending Date: 06/25/22 96 Hour Hold Ending Time: 20:17 Attestations NPU 2 Medical Necessity Statement*: Inpatient hospitalization is medically necessary and the clinically appropriate intervention at this time. We will monitor medication to make changes as indicated. The patient's likely length of stay is 1-4 days. Coding Level of Care Code Acute Code for [facility] Fwd Diagnoses Psychosis F29 Depressed mood R45.89 Severe alcohol dependence F10.20 Methamphetamine dependence, episodic F15.20 PTSD (post-traumatic stress disorder) F43.10
[2023-03-24 14:00] VITALS: BP 120/75; PULSE 73; RESP 16; TEMP 36.8; O2SAT 97
[2023-03-24] MEDS: acetaminophen 325 mg Tablet 650 MG PO (20:09)
[2023-03-24 20:14] VITALS: BP 112/67; PULSE 73; RESP 15; TEMP 36.7; O2SAT 96
[2023-03-25 06:00] VITALS: BP 126/77; PULSE 84; RESP 16; TEMP 37; O2SAT 97
--- NOTE | 2023-03-25 08:01 | P.NPUPN_ITS ---
Subjective NPU 2 Subjective: Patient presented today reporting that she is doing fine. Based on her conversations with the social work team and this verse writer she continues to demonstrate ambivalence about what she is doing next. She is now reporting that she is going to have to spend some time back in [place] where her car is because her car does not necessarily fix in running. We discussed concerns about her returning to the same environment that continues to create the addictive chaos that she finds herself in. She reports some possible exploration of sober living treatment but was appearing halfhearted. Mental Status Exam 2 MSE Comments: This is an obese white female in a hospital gown with poor hygiene and poor eye contact. No abnormal movements except for significant psychomotor retardation.. Cooperative with exam in mild to moderate distress. Speech was decreased rate and volume. Mood described as anxious, affect congruent. Thought process organized. Thought contact: patient denies suicidal or homicidal ideation, there were no delusions reported or noted, patient denied auditory or visual hallucinations. Attention and concentration appeared intact and memory appeared reliable but none were formally tested. Patient is alert and oriented times three. Insight and judgment appear limited but improving and impulse control appears impaired, but improving. Vitals/I&O/Wt Last Vital Signs Temp 98.6 F 03/25/23 06:00 Pulse 84 03/25/23 06:00 Resp 16 03/25/23 06:00 BP 126/77 03/25/23 06:00 Pulse Ox 97 03/25/23 06:00 O2 Del Method Room Air 03/25/23 06:00 Data NPU 03/20/23 18:14 03/20/23 19:55 A&P Assessment and plan (1) Psychosis: (2) Depressed mood: (3) Severe alcohol dependence: (4) Methamphetamine dependence, episodic: (5) PTSD (post-traumatic stress disorder): Plan This is a 52-year-old white female with a long history of depression, anxiety and polysubstance abuse who presents with suicidal and homicidal ideation and auditory hallucinations currently on no medication and not receiving services. 1.? Continued Lexapro 10mg to target depression, and increased abilify to 10mg to target psychotic symptoms likely secondary from methamphetamine abuse. Continued Naltrexone 50mg daily with plan to begin vivitrol IM to target chronic alcohol use. Referral for rehabilitation facilities. Consider [facility] for substance abuse treatment. 2.? Continue every 15 minute checks for safety. 3.? Encourage individual, group and milieu therapies. 4.? Encourage sober living treatment after discharge at the highest level of care to which she is willing to commit. Involuntary Hold Information 2 96 Hour Hold: 96 Hour Involuntary Admission: Yes 96 Hour Hold Ending Date: 06/25/22 96 Hour Hold Ending Time: 20:17 Attestations NPU 2 Medical Necessity Statement*: Inpatient hospitalization is medically necessary and the clinically appropriate intervention at this time. We will monitor medication to make changes as indicated. The patient's likely length of stay is 1-3 days. Coding Level of Care Code Acute Code for [facility] Fwd Diagnoses Psychosis F29 Depressed mood R45.89 Severe alcohol dependence F10.20 Methamphetamine dependence, episodic F15.20 PTSD (post-traumatic stress disorder) F43.10
[2023-03-25] MEDS: naltrexone hcl 50 mg Tablet PO (08:37)
[2023-03-25] MEDS: thiamine 100 mg Tablet PO (08:37)
[2023-03-25] MEDS: escitalopram 10 mg Tablet PO (08:37)
[2023-03-25] MEDS: multivitamin therapeutic Tablet 1 TAB PO (08:37)
[2023-03-25] MEDS: ARIPiprazole 10 mg Tablet PO (08:37)
[2023-03-25] MEDS: nicotine 2 mg Gum BUCCAL ×3 (08:37→19:24)
[2023-03-25] MEDS: folic acid 1 mg Tablet PO (08:38)
[2023-03-25 14:00] VITALS: BP 116/77; PULSE 85; RESP 16; TEMP 36.6; O2SAT 95
[2023-03-25] MEDS: OLANZapine 5 mg ODT PO (19:18)
[2023-03-25 21:44] VITALS: BP 116/74; PULSE 92; RESP 16; TEMP 36.8; O2SAT 96
--- NOTE | 2023-03-25 22:15 | P.NPUPN_ITS ---
Subjective NPU 2 Subjective: Patient presented today reporting that she was anxious because she thought that long enforcement that presented to the hospital were here for her. She said that she spoke to her rail walker and if she gets into a rehab she will have to go to penitentiary. We discussed the challenges that we have because [facility] 6 [facility]. She reports that she filled out a bunch of forms to be sent out today by the social work team and she is hoping that by Tuesday something materializes. We discussed the plan to start considering discharge on Tuesday. Mental Status Exam 2 MSE Comments: This is an obese white female in a hospital gown with poor hygiene and poor eye contact. No abnormal movements except for significant psychomotor retardation.. Cooperative with exam in mild distress. Speech was more normal rate and volume. Mood described as anxious, affect congruent. Thought process organized. Thought contact: patient denies suicidal or homicidal ideation, there were no delusions reported or noted, patient denied auditory or visual hallucinations. Attention and concentration appeared intact and memory appeared reliable but none were formally tested. Patient is alert and oriented times three. Insight and judgment appear limited but improving and impulse control appears impaired, but improving. Vitals/I&O/Wt Last Vital Signs Temp 98.2 F 03/25/23 21:44 Pulse 92 03/25/23 21:44 Resp 16 03/25/23 21:44 BP 116/74 03/25/23 21:44 Pulse Ox 96 03/25/23 21:44 O2 Del Method Room Air 03/25/23 14:00 Data NPU 03/20/23 18:14 03/20/23 19:55 A&P Assessment and plan (1) Psychosis: (2) Depressed mood: (3) Severe alcohol dependence: (4) Methamphetamine dependence, episodic: (5) PTSD (post-traumatic stress disorder): Plan This is a 52-year-old white female with a long history of depression, anxiety and polysubstance abuse who presents with suicidal and homicidal ideation and auditory hallucinations currently on no medication and not receiving services. 1.? Continued Lexapro 10mg to target depression, and increased abilify to 10mg to target psychotic symptoms likely secondary from methamphetamine abuse. Continued Naltrexone 50mg daily with plan to begin vivitrol IM to target chronic alcohol use. Referral for rehabilitation facilities. Consider [facility] for substance abuse treatment. 2.? Continue every 15 minute checks for safety. 3.? Encourage individual, group and milieu therapies. 4.? Encourage sober living treatment after discharge at the highest level of care to which she is willing to commit. Involuntary Hold Information 2 96 Hour Hold: 96 Hour Involuntary Admission: Yes 96 Hour Hold Ending Date: 06/25/22 96 Hour Hold Ending Time: 20:17 Attestations NPU 2 Medical Necessity Statement*: Inpatient hospitalization is medically necessary and the clinically appropriate intervention at this time. We will monitor medication to make changes as indicated. The patient's likely length of stay is 1-3 days. Coding Level of Care Code Acute Code for [facility] Fwd Diagnoses Psychosis F29 Depressed mood R45.89 Severe alcohol dependence F10.20 Methamphetamine dependence, episodic F15.20 PTSD (post-traumatic stress disorder) F43.10
[2023-03-26] MEDS: trazodone 100 mg Tablet PO ×2 (01:06→20:54)
[2023-03-26 06:00] VITALS: BP 111/77; PULSE 84; RESP 18; TEMP 36.8; O2SAT 96
[2023-03-26] MEDS: nicotine 2 mg Gum BUCCAL (06:42)
[2023-03-26] MEDS: ARIPiprazole 10 mg Tablet PO (08:17)
[2023-03-26] MEDS: hyDROXYzine 25 mg Capsule 50 MG PO ×2 (08:17→20:54)
[2023-03-26] MEDS: multivitamin therapeutic Tablet 1 TAB PO (08:18)
[2023-03-26] MEDS: naltrexone hcl 50 mg Tablet PO (08:18)
[2023-03-26] MEDS: escitalopram 10 mg Tablet PO (08:18)
[2023-03-26] MEDS: folic acid 1 mg Tablet PO (08:18)
[2023-03-26] MEDS: thiamine 100 mg Tablet PO (08:18)
[2023-03-26] MEDS: nicotine 4 mg lozenge MUCOUS MEM ×4 (08:56→22:03)
--- NOTE | 2023-03-26 09:47 | PC.NURSE ---
Patient denied SI, HI, and AVH during morning assessment. Patient states that she is experiencing severed anxiety because she is freaked out, thinking the police are going to pick me up. This nurse talked with patient about her feelings. Patient appeared to calm down. Will continue to monitor.
[2023-03-26] MEDS: docusate sodium 100 mg Capsule PO (10:09)
[2023-03-26] MEDS: OLANZapine 5 mg ODT PO ×2 (11:43→22:56)
--- NOTE | 2023-03-26 11:43 | PC.NURSE ---
Patient reports anxiety 09/06. Administered Zyprexa 5mg ODT to patient. Will continue to monitor.
[2023-03-26 14:00] VITALS: BP 101/66; PULSE 78; RESP 15; TEMP 36.3; O2SAT 98
--- NOTE | 2023-03-26 14:02 | P.NPUPN_ITS ---
Subjective NPU 2 Subjective: Patient presented today reporting that she still having some anxiety but it is decreasing some. She reports that she is having some dreams about the police and feeling anxious anytime the police come to the building. But she reports that there is a possible rehab bed available and that it is her understanding that if she has a bed date she will be able to go to the court house with that and avoid any additional legal proceedings. We discussed making sure we were able to accomplish that on Tuesday and the possibility of discharging at that point. She reports that she is reacclimating to her medication. Mental Status Exam 2 MSE Comments: This is an obese white female in a hospital gown with poor hygiene and poor eye contact. No abnormal movements except for significant psychomotor retardation.. Cooperative with exam in mild distress. Speech was more normal rate and volume. Mood described as anxious but better now, affect congruent. Thought process organized. Thought contact: patient denies suicidal or homicidal ideation, there were no delusions reported or noted, patient denied auditory or visual hallucinations. Attention and concentration appeared intact and memory appeared reliable but none were formally tested. Patient is alert and oriented times three. Insight and judgment appear limited but improving and impulse control appears impaired, but improving. Vitals/I&O/Wt Last Vital Signs Temp 98.3 F 03/26/23 06:00 Pulse 84 03/26/23 06:00 Resp 18 03/26/23 06:00 BP 111/77 03/26/23 06:00 Pulse Ox 96 03/26/23 06:00 O2 Del Method Room Air 03/26/23 06:00 Data NPU 03/20/23 18:14 03/20/23 19:55 A&P Assessment and plan (1) Psychosis: (2) Depressed mood: (3) Severe alcohol dependence: (4) Methamphetamine dependence, episodic: (5) PTSD (post-traumatic stress disorder): Plan This is a 52-year-old white female with a long history of depression, anxiety and polysubstance abuse who presents with suicidal and homicidal ideation and auditory hallucinations currently on no medication and not receiving services. 1.? Continued Lexapro 10mg to target depression, and increased abilify to 10mg to target psychotic symptoms likely secondary from methamphetamine abuse. Continued Naltrexone 50mg daily with plan to begin vivitrol IM to target chronic alcohol use. Referral for rehabilitation facilities. Consider [facility] for substance abuse treatment. 2.? Continue every 15 minute checks for safety. 3.? Encourage individual, group and milieu therapies. 4.? Encourage sober living treatment after discharge at the highest level of care to which she is willing to commit. Involuntary Hold Information 2 96 Hour Hold: 96 Hour Involuntary Admission: Yes 96 Hour Hold Ending Date: 06/25/22 96 Hour Hold Ending Time: 20:17 Attestations NPU 2 Medical Necessity Statement*: Inpatient hospitalization is medically necessary and the clinically appropriate intervention at this time. We will monitor medication to make changes as indicated. The patient's likely length of stay is 1-2 days. Coding Level of Care Code Acute Code for [facility] Fwd Diagnoses Psychosis F29 Depressed mood R45.89 Severe alcohol dependence F10.20 Methamphetamine dependence, episodic F15.20 PTSD (post-traumatic stress disorder) F43.10
[2023-03-26 20:05] VITALS: BP 112/76; PULSE 87; RESP 18; TEMP 36.5; O2SAT 97
[2023-03-27] MEDS: haloperidol 5 mg Tablet PO (00:48)
[2023-03-27 06:00] VITALS: BP 132/88; PULSE 79; RESP 16; TEMP 36.9; O2SAT 97
[2023-03-27] MEDS: nicotine 4 mg lozenge MUCOUS MEM ×4 (06:22→14:25)
--- NOTE | 2023-03-27 08:33 | P.NPUPN_ITS ---
Subjective NPU 2 Subjective: Patient presented today reporting that she feels ready to go. She reports that she is going to her daughters and gonna have a bed date which should allow her to avoid skilled nursing. We discussed making sure we were able to accomplish that tomorrow prior to discharge. She reports that she is reacclimating to her medication. Mental Status Exam 2 MSE Comments: This is an obese white female in a hospital gown with poor hygiene and poor eye contact. No abnormal movements except for significant psychomotor retardation.. Cooperative with exam in mild distress. Speech was more normal rate and volume. Mood described as feeling better, affect congruent. Thought process organized. Thought contact: patient denies suicidal or homicidal ideation, there were no delusions reported or noted, patient denied auditory or visual hallucinations. Attention and concentration appeared intact and memory appeared reliable but none were formally tested. Patient is alert and oriented times three. Insight and judgment appear limited but improving and impulse control appears improving. Vitals/I&O/Wt Last Vital Signs Temp 98.4 F 03/27/23 06:00 Pulse 79 03/27/23 06:00 Resp 16 03/27/23 06:00 BP 132/88 03/27/23 06:00 Pulse Ox 97 03/27/23 06:00 O2 Del Method Room Air 03/26/23 06:00 Weight last 48 hrs Weight 87.09 kg Weight 87.362 kg Data NPU 03/20/23 18:14 03/20/23 19:55 A&P Assessment and plan (1) Psychosis: (2) Depressed mood: (3) Severe alcohol dependence: (4) Methamphetamine dependence, episodic: (5) PTSD (post-traumatic stress disorder): Plan This is a 52-year-old white female with a long history of depression, anxiety and polysubstance abuse who presents with suicidal and homicidal ideation and auditory hallucinations currently on no medication and not receiving services. 1.? Continued Lexapro 10mg to target depression, and increased abilify to 10mg to target psychotic symptoms likely secondary from methamphetamine abuse. Continued Naltrexone 50mg daily with plan to begin vivitrol IM to target chronic alcohol use. Referral for rehabilitation facilities. Consider [facility] for substance abuse treatment. 2.? Continue every 15 minute checks for safety. 3.? Encourage individual, group and milieu therapies. 4.? Encourage sober living treatment after discharge at the highest level of care to which she is willing to commit. Involuntary Hold Information 2 96 Hour Hold: 96 Hour Involuntary Admission: Yes 96 Hour Hold Ending Date: 06/25/22 96 Hour Hold Ending Time: 20:17 Attestations NPU 2 Medical Necessity Statement*: Inpatient hospitalization is medically necessary and the clinically appropriate intervention at this time. We will monitor medication to make changes as indicated. The patient's likely length of stay is 1 day. Coding Level of Care Code Acute Code for [facility] Fwd Diagnoses Psychosis F29 Depressed mood R45.89 Severe alcohol dependence F10.20 Methamphetamine dependence, episodic F15.20 PTSD (post-traumatic stress disorder) F43.10
[2023-03-27] MEDS: naltrexone hcl 50 mg Tablet PO (08:52)
[2023-03-27] MEDS: ARIPiprazole 10 mg Tablet PO (08:52)
[2023-03-27] MEDS: thiamine 100 mg Tablet PO (08:52)
[2023-03-27] MEDS: multivitamin therapeutic Tablet 1 TAB PO (08:52)
[2023-03-27] MEDS: escitalopram 10 mg Tablet PO (08:52)
[2023-03-27] MEDS: folic acid 1 mg Tablet PO (08:52)
[2023-03-27 14:00] VITALS: BP 124/78; PULSE 93; RESP 14; TEMP 36.8; O2SAT 98
[2023-03-27] MEDS: hyDROXYzine 25 mg Capsule 50 MG PO (14:25)
[2023-03-27 19:41] VITALS: BP 111/76; PULSE 71; RESP 16; TEMP 37; O2SAT 96
[2023-03-28] MEDS: trazodone 100 mg Tablet PO (00:24)
[2023-03-28] MEDS: haloperidol 5 mg Tablet PO (01:17)
[2023-03-28] MEDS: acetaminophen 325 mg Tablet 650 MG PO (05:49)
[2023-03-28 06:00] VITALS: BP 131/88; PULSE 84; RESP 18; TEMP 36.5; O2SAT 99
[2023-03-28] MEDS: nicotine 4 mg lozenge MUCOUS MEM ×3 (06:20→10:17)
[2023-03-28] MEDS: escitalopram 10 mg Tablet PO (07:49)
[2023-03-28] MEDS: ARIPiprazole 10 mg Tablet PO (07:49)
[2023-03-28] MEDS: thiamine 100 mg Tablet PO (07:49)
[2023-03-28] MEDS: naltrexone hcl 50 mg Tablet PO (07:50)
[2023-03-28] MEDS: folic acid 1 mg Tablet PO (07:50)
[2023-03-28] MEDS: multivitamin therapeutic Tablet 1 TAB PO (07:50)
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
[2023-03-28 08:43] VITALS: BP 131/88; PULSE 84; RESP 18; TEMP 36.5; O2SAT 99
[2023-03-28] MEDS: ibuprofen 600 mg Tablet PO (10:17)
[2023-03-28] MEDS: OLANZapine 5 mg ODT PO (10:46)
== END 2023-03-28 12:15 | disposition home or self-care (01) | DRG 885 ==
LOC: ER 19:27 → NP 21:48
PROVIDERS: Admitting Provider Psychiatry & Neurology Psychiatry; Emergency Provider Nurse Practitioner Family; PCP Family Medicine; Visit Provider Psychiatry & Neurology Psychiatry
DX: F29 Unspecified psychosis not due to a substance or known physiological condition (principal); F33.9 Major depressive disorder, recurrent, unspecified; R45.851 Suicidal ideations; Z59.00 Homelessness unspecified; F15.20 Other stimulant dependence, uncomplicated; F43.10 Post-traumatic stress disorder, unspecified; R45.850 Homicidal ideations; F41.9 Anxiety disorder, unspecified; F17.210 Nicotine dependence, cigarettes, uncomplicated; F10.20 Alcohol dependence, uncomplicated; Z86.19 Personal history of other infectious and parasitic diseases
CPT/HCPCS: 36415; 80053; 80306; 80307; 81001; 84443; 85025; 90471; 90686; 97150; 97165; 99285